=== PATIENT | male | born 1970 | race Caucasian/White ===

== ENCOUNTER → 2016-03-13 | Outpatient (REF) | payer BC ==
[2016-03-13 14:26] LABS: PERCENT SATURATION 41.8 % (19.7-37.4)
== END ==
LOC: M LAB REF 13:02
PROVIDERS: ATTEND Nurse Practitioner Adult Health
DX: E83.110 Hereditary hemochromatosis (principal)

== ENCOUNTER 2016-05-08 15:26 | Emergency (ER) | payer BC, OTHER ==
[~2016-05-08] VITALS: Ht 177.8 cm; Wt 100.2 kg
[2016-05-08] MEDS ORDERED: ONDANSETRON 4MG/2ML VIAL (J2405) As Ordered ONE (15:32)
[2016-05-08] MEDS ORDERED: NS 1,000 ML IV ONE (15:45)
[2016-05-08] MEDS ORDERED: ISOVUE-370 76% 100ML VIAL (Q9967) As Ordered ONE (15:59)
[2016-05-08] MEDS ORDERED: PROPOFOL 1,000 MG/100 ML VIAL As Ordered ONE (15:59)
[2016-05-08] MEDS ORDERED: ETOMIDATE INJ 20MG/10ML VIAL ONE (16:13)
[2016-05-08] MEDS ORDERED: ROCURONIUM BROMIDE 50 MG/5 ML VIAL ONE (16:13)
[2016-05-08] MEDS ORDERED: PROPOFOL 200 MG/20 ML VIAL ONE (16:13)
[2016-05-08] MEDS ORDERED: PROPOFOL 1,000 MG in APPROPRIATE DILUENT 1 EA IV SCH (16:15)
[2016-05-08] MEDS ORDERED: ROCURONIUM BROMIDE 50 MG/5 ML VIAL IV STA (16:53)
[2016-05-08] MEDS ORDERED: ETOMIDATE INJ 20MG/10ML VIAL IV STA (16:53)
[2016-05-08] MEDS ORDERED: PROPOFOL 200 MG/20 ML VIAL IV STA (16:53)
[2016-05-08] MEDS ORDERED: fentaNYL 100 MCG/2 ML INJECTION (J3010) IV ONE (17:00)
[2016-05-08] MEDS ORDERED: ONDANSETRON 4MG/2ML VIAL (J2405) IV ONE (17:00)
[2016-05-08 17:12] VITALS: BP 132/74
[2016-05-08 17:26] LABS: MEAN CORPUSCULAR HEMOGLOBIN 29.3 pg (27.0-33.0); MEAN CORPUSCULAR HGB CONC 33.2 g/dl (32.0-36.5); MEAN CORPUSCULAR VOLUME 88.2 fl (80.0-96.0); PLATELET COUNT, AUTOMATED 253 k/mm3 (150-450); RED CELL DISTRIBUTION WIDTH 13.2 % (11.5-14.5); WHITE BLOOD COUNT 28.2 K/mm3 (4.0-10.0)
[2016-05-08 17:35] LABS: METHADONE URINE NEGATIVE (NEGATIVE)
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
[2016-05-08 17:39] LABS: INR 0.99
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
[2016-05-08 17:41] LABS: ALKALINE PHOSPHATASE 62 U/L (45-117); ALT/SGPT 100 U/L (12-78); AMYLASE 70 U/L (25-115); AST/SGOT 98 U/L (15-37); BILIRUBIN,DIRECT 0.2 MG/DL (0.0-0.2); BILIRUBIN,TOTAL 0.6 MG/DL (0.2-1.0); BLOOD UREA NITROGEN 15 MG/DL (7-18); CALCIUM LEVEL 7.7 MG/DL (8.5-10.1); CARBON DIOXIDE LEVEL 27 MEQ/L (21-32); CHLORIDE LEVEL 102 MEQ/L (98-107); CREATININE FOR GFR 0.86 MG/DL (0.70-1.30); GLUCOSE, FASTING 187 MG/DL (70-105); POTASSIUM SERUM 3.3 MEQ/L (3.5-5.1); SODIUM LEVEL 139 MEQ/L (136-145)
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
[2016-05-08 17:52] LABS: ANION GAP 10 MEQ/L (8-16)
[2016-05-08 17:53] LABS: ALBUMIN 3.9 GM/DL (3.2-5.2); ALBUMIN/GLOBULIN RATIO 1.39 (1.00-1.93); TOTAL PROTEIN 6.7 GM/DL (6.4-8.2)
[2016-05-08 18:03] LABS: BANDS 18 % (< 11)
[2016-05-08 18:04] LABS: TOXIC GRANULATION 1+
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
--- NOTE | 2016-05-08 20:31 | ED PDOC ---
Provider Note Patient was prepared for intubation shortly after arrival. Pre-oxygenated. 4 Attempts were made by the ED staff via direct glidescope larygnoscopy with good C-Spine immobilization. Unfortunately, the tube was not able to be advanced pass the cords. Anesthesia was called, and the patient was bagged with good results between attempts. a 7.0 tube was secured by the eap counselor. The patient tolerated the procedure well. Tube placement was confirmed by capnography, color change, xray and auscultation. EDEN CUNNINGHAM MD May 08, 2016 20:31
== END 2016-05-08 17:00 | disposition short-term general hospital (02) ==
LOC: EDBD 15:26 → M ED 16:12
DX: S06.6X9A Traumatic subarachnoid hemorrhage with loss of consciousness of unspecified duration, initial encounter (principal); S22.31XA Fracture of one rib, right side, initial encounter for closed fracture; S42.018A Nondisplaced fracture of sternal end of left clavicle, initial encounter for closed fracture; S27.329A Contusion of lung, unspecified, initial encounter; V49.40XA Driver injured in collision with unspecified motor vehicles in traffic accident, initial encounter; Y92.410 Unspecified street and highway as the place of occurrence of the external cause; Y93.89 Activity, other specified; Y99.9 Unspecified external cause status; I10 Essential (primary) hypertension; Z88.0 Allergy status to penicillin
CPT/HCPCS: 31500; 51702; 70450; 71010; 71260; 72125; 74177; 80048; 80076; 80306; 81001; 82150; 82550; 82553; 83605; 83690; 85025; 85610; 85730; 86850; 86900; 86901; 93041; 94760; 96361; 96374; 96375; 99285; G0480; J2405; J3010; Q9967

== ENCOUNTER → 2016-08-13 | Outpatient (REF) | PROVIDERS: ATTEND Internal Medicine | DX: S42.002A Fracture of unspecified part of left clavicle, initial encounter for closed fracture (principal) ==

== ENCOUNTER → 2016-08-14 | Outpatient (REF) ==
[2016-08-14 10:32] LABS: MEAN CORPUSCULAR HEMOGLOBIN 30.6 pg (27.0-33.0); MEAN CORPUSCULAR HGB CONC 35.8 g/dl (32.0-36.5); MEAN CORPUSCULAR VOLUME 85.4 fl (80.0-96.0); RED CELL DISTRIBUTION WIDTH 14.8 % (11.5-14.5); WHITE BLOOD COUNT 7.4 K/mm3 (4.0-10.0)
[2016-08-14 10:37] LABS: ANION GAP 7 MEQ/L (8-16); BLOOD UREA NITROGEN 19 MG/DL (7-18); CALCIUM LEVEL 9.4 MG/DL (8.5-10.1); CARBON DIOXIDE LEVEL 29 MEQ/L (21-32); CHLORIDE LEVEL 100 MEQ/L (98-107); CREATININE FOR GFR 0.52 MG/DL (0.70-1.30); GLOMERULAR FILTRATION RATE > 60.0 (>60); GLUCOSE, FASTING 83 MG/DL (70-105); POTASSIUM SERUM 4.4 MEQ/L (3.5-5.1); SODIUM LEVEL 136 MEQ/L (136-145)
== END ==
PROVIDERS: ATTEND Internal Medicine
DX: Z51.81 Encounter for therapeutic drug level monitoring (principal); Z79.899 Other long term (current) drug therapy

== ENCOUNTER → 2016-08-20 | Outpatient (REF) ==
[2016-08-20 10:31] LABS: MEAN CORPUSCULAR HEMOGLOBIN 30.1 pg (27.0-33.0); MEAN CORPUSCULAR HGB CONC 35.6 g/dl (32.0-36.5); MEAN CORPUSCULAR VOLUME 84.6 fl (80.0-96.0); RED CELL DISTRIBUTION WIDTH 14.7 % (11.5-14.5); WHITE BLOOD COUNT 5.6 K/mm3 (4.0-10.0)
[2016-08-20 11:00] LABS: ANION GAP 9 MEQ/L (8-16); BLOOD UREA NITROGEN 19 MG/DL (7-18); CALCIUM LEVEL 9.8 MG/DL (8.5-10.1); CARBON DIOXIDE LEVEL 28 MEQ/L (21-32); CHLORIDE LEVEL 102 MEQ/L (98-107); CREATININE FOR GFR 0.51 MG/DL (0.70-1.30); GLOMERULAR FILTRATION RATE > 60.0 (>60); GLUCOSE, FASTING 79 MG/DL (70-105); POTASSIUM SERUM 4.4 MEQ/L (3.5-5.1); SODIUM LEVEL 139 MEQ/L (136-145)
== END ==
PROVIDERS: ATTEND Internal Medicine
DX: Z79.899 Other long term (current) drug therapy (principal)

== ENCOUNTER → 2016-09-03 | Outpatient (REF) ==
[~2016-09-03] MED LIST: ACET32TAB PEG; ALBU83IN INH; AMLO10TA2 PEG; ARTI99.0 OU; ASPI81CH PEG; BACL10TA2 PEG; CIPR5SUS PEG; CULT10CA2 PEG; DULC10SU2 PR; ENEMENE16 PR; FAMO40TA3 PEG; FLON1SPR; HYDR10TAB PEG; LEVA1TAB2 PO; LEVE15SO PEG; LEVE500UDC PEG; MAPA325T2 PEG; METO1TAB87 PEG; METO37.5 PEG; MILKSUS PEG; MONT10TA2 PEG; OSMOLIQ7 PEG; PROC25SU24 PR; SENN15UDC PEG; XARE20TA PEG; [UNRECOGNIZED DRUG - CODE] PEG
[2016-09-03 11:49] LABS: MEAN CORPUSCULAR HEMOGLOBIN 30.6 pg (27.0-33.0); MEAN CORPUSCULAR HGB CONC 35.7 g/dl (32.0-36.5); MEAN CORPUSCULAR VOLUME 85.9 fl (80.0-96.0); RED CELL DISTRIBUTION WIDTH 14.4 % (11.5-14.5); WHITE BLOOD COUNT 6.8 K/mm3 (4.0-10.0)
[2016-09-03 13:11] LABS: ANION GAP 9 MEQ/L (8-16); BLOOD UREA NITROGEN 19 MG/DL (7-18); CALCIUM LEVEL 9.5 MG/DL (8.5-10.1); CARBON DIOXIDE LEVEL 27 MEQ/L (21-32); CHLORIDE LEVEL 101 MEQ/L (98-107); CREATININE FOR GFR 0.54 MG/DL (0.70-1.30); GLOMERULAR FILTRATION RATE > 60.0 (>60); GLUCOSE, FASTING 74 MG/DL (70-105); POTASSIUM SERUM 4.3 MEQ/L (3.5-5.1); SODIUM LEVEL 137 MEQ/L (136-145)
== END ==
PROVIDERS: ATTEND Internal Medicine
DX: Z93.1 Gastrostomy status (principal)

== ENCOUNTER 2016-09-08 22:08 | Emergency (ER) | payer BC, OTHER ==
[~2016-09-08] VITALS: Ht 185.4 cm; Wt 78.2 kg
[2016-09-08 22:31] VITALS: BP 131/81
[2016-12-23] MEDS ORDERED: MAPA325T2 PEG (17:35)
[2016-12-23] MEDS ORDERED: LEVE15SO PEG (17:35)
[2016-12-23] MEDS ORDERED: XARE20TA PEG (17:35)
[2016-12-23] MEDS ORDERED: ACET32TAB PEG (17:35)
[2016-12-23] MEDS ORDERED: MILKSUS PEG (17:35)
[2016-12-23] MEDS ORDERED: BACL10TA2 PEG (17:35)
[2016-12-23] MEDS ORDERED: PROC25SU24 PR (17:35)
[2016-12-23] MEDS ORDERED: ENEMENE16 PR (17:44)
[2016-12-23] MEDS ORDERED: METO37.5 PEG (17:44)
[2016-12-23] MEDS ORDERED: FAMO40TA3 PEG (17:44)
[2016-12-23] MEDS ORDERED: [UNRECOGNIZED DRUG - CODE] PEG (17:44)
[2016-12-23] MEDS ORDERED: ALBU83IN INH (17:44)
[2016-12-23] MEDS ORDERED: ARTI99.0 OU (17:44)
[2016-12-23] MEDS ORDERED: ASPI81CH PEG (17:44)
[2016-12-23] MEDS ORDERED: MONT10TA2 PEG (17:44)
[2016-12-23] MEDS ORDERED: HYDR10TAB PEG (17:44)
[2016-12-23] MEDS ORDERED: OSMOLIQ7 PEG (17:44)
[2016-12-23] MEDS ORDERED: AMLO10TA2 PEG (17:44)
[2016-12-23] MEDS ORDERED: SENN15UDC PEG (17:44)
[2016-12-23] MEDS ORDERED: FLON1SPR (17:44)
[2016-12-23] MEDS ORDERED: DULC10SU2 PR (17:44)
[2016-12-23] MEDS ORDERED: CULT10CA2 PEG (17:44)
[2016-12-27] MEDS ORDERED: LEVA1TAB2 PO (08:50)
[2016-12-27] MEDS ORDERED: METO1TAB87 PEG (08:50)
== END 2016-09-09 00:45 | disposition home or self-care (01) ==
LOC: M ED 22:08
DX: Z43.1 Encounter for attention to gastrostomy (principal); G82.50 Quadriplegia, unspecified; Z88.8 Allergy status to other drugs, medicaments and biological substances; Z88.0 Allergy status to penicillin

== ENCOUNTER → 2016-09-26 | Outpatient (REF) ==
[2016-09-26 11:45] LABS: ANION GAP 13 MEQ/L (8-16); BLOOD UREA NITROGEN 18 MG/DL (7-18); CALCIUM LEVEL 9.2 MG/DL (8.5-10.1); CARBON DIOXIDE LEVEL 26 MEQ/L (21-32); CHLORIDE LEVEL 99 MEQ/L (98-107); CREATININE FOR GFR 0.53 MG/DL (0.70-1.30); GLOMERULAR FILTRATION RATE > 60.0 (>60); GLUCOSE, FASTING 84 MG/DL (70-105); POTASSIUM SERUM 3.9 MEQ/L (3.5-5.1); SODIUM LEVEL 138 MEQ/L (136-145)
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
== END ==
PROVIDERS: ATTEND Internal Medicine
DX: Z00.00 Encounter for general adult medical examination without abnormal findings (principal)

== ENCOUNTER → 2016-10-01 | Outpatient (REF) ==
[2016-10-01 11:03] LABS: MEAN CORPUSCULAR HEMOGLOBIN 31.3 pg (27.0-33.0); MEAN CORPUSCULAR HGB CONC 35.4 g/dl (32.0-36.5); MEAN CORPUSCULAR VOLUME 88.4 fl (80.0-96.0); RED CELL DISTRIBUTION WIDTH 13.8 % (11.5-14.5); WHITE BLOOD COUNT 9.4 K/mm3 (4.0-10.0)
== END ==
PROVIDERS: ATTEND Internal Medicine
DX: Z93.1 Gastrostomy status (principal)

== ENCOUNTER → 2016-10-09 | Outpatient (CLI) | payer BC ==
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
== END ==
LOC: M PAIN 12:30
PROVIDERS: ATTEND Anesthesiology
DX: M79.602 Pain in left arm (principal); M79.601 Pain in right arm; M62.422 Contracture of muscle, left upper arm; M62.421 Contracture of muscle, right upper arm; J45.909 Unspecified asthma, uncomplicated; I10 Essential (primary) hypertension; K21.9 Gastro-esophageal reflux disease without esophagitis; E83.119 Hemochromatosis, unspecified; Z87.891 Personal history of nicotine dependence; Z79.82 Long term (current) use of aspirin; Z79.899 Other long term (current) drug therapy; Z88.0 Allergy status to penicillin; Z88.8 Allergy status to other drugs, medicaments and biological substances; Z87.820 Personal history of traumatic brain injury; Z98.1 Arthrodesis status; Z98.2 Presence of cerebrospinal fluid drainage device

== ENCOUNTER → 2016-10-18 | Outpatient (CLI) | payer BC ==
--- NOTE | 2016-10-18 13:48 | REP ---
CT HEAD WITHOUT CONTRAST: HISTORY: Traumatic brain injury. COMPARISON: 05/08/2016 Areas of decreased attenuation are present in the frontal, parietal, and left temporal lobes. There is dilatation of the overlying cortical sulci and anterior horns of the lateral ventricles. These findings are consistent with encephalomalacia. There is no intraparenchymal hemorrhage, mass, or midline shift. A shunt is present in the anterior horn of the right lateral ventricle. There is mild dilatation of the ventricular system. There is no dilatation of the overlying cortical sulci. This is consistent with at least minimal hydrocephalus. There is no extracerebral collection. The visualized sinuses are clear. IMPRESSION: 1. Bilateral frontal, parietal, and left temporal encephalomalacia. 2. There is dilatation of the ventricular system without dilatation of the overlying cortical sulci. This is consistent with at least minimal hydrocephalus. A shunt is present in the right lateral ventricle. Signed by Jonathan Yap MD 10/18/2016 01:54 P
== END ==
LOC: M RAD 12:23
PROVIDERS: ATTEND Psychiatry & Neurology Neurology
DX: S06.2X9D Diffuse traumatic brain injury with loss of consciousness of unspecified duration, subsequent encounter (principal); S06.6X Traumatic subarachnoid hemorrhage; S06.5X Traumatic subdural hemorrhage; X58.XXXD Exposure to other specified factors, subsequent encounter; Y92.9 Unspecified place or not applicable; Z98.2 Presence of cerebrospinal fluid drainage device

== ENCOUNTER 2016-10-20 21:52 | Emergency (ER) | payer BC ==
[~2016-10-20] VITALS: Ht 180.3 cm; Wt 82.0 kg
[2016-10-20] MEDS ORDERED: NS 500 ML IV ONE (22:30)
[2016-10-20 23:21] LABS: BASO # 0.1 K/mm3 (0.0-0.2); BASO % 0.2 % (0.0-1.0); EOS # 0.1 K/mm3 (0.0-0.50); EOS % 0.6 % (0.0-3.0); LARGE UNSTAINED CELL % 0.2 % (0.0-4.0); LYMPH % 4.2 % (24.0-44.0); MEAN CORPUSCULAR HEMOGLOBIN 31.1 pg (27.0-33.0); MEAN CORPUSCULAR HGB CONC 34.9 g/dl (32.0-36.5); MEAN CORPUSCULAR VOLUME 89.3 fl (80.0-96.0); MONO # 0.8 K/mm3 (0.0-0.8); MONO % 3.6 % (0.0-5.0); NEUTROPHILS # 21.2 K/mm3 (1.8-7.7); NEUTROPHILS % 91.2 % (36.0-66.0); PLATELET COUNT, AUTOMATED 326 k/mm3 (150-450); RED CELL DISTRIBUTION WIDTH 13.4 % (11.5-14.5); WHITE BLOOD COUNT 23.3 K/mm3 (4.0-10.0)
[2016-10-21 03:20] LABS: ALBUMIN/GLOBULIN RATIO 1.18 (1.00-1.93); ALKALINE PHOSPHATASE 71 U/L (45-117); ALT/SGPT 31 U/L (12-78); AMYLASE 39 U/L (25-115); ANION GAP 10 MEQ/L (8-16); AST/SGOT 11 U/L (15-37); BILIRUBIN,DIRECT 0.3 MG/DL (0.0-0.2); BILIRUBIN,TOTAL 1.2 MG/DL (0.2-1.0); BLOOD UREA NITROGEN 20 MG/DL (7-18); CALCIUM LEVEL 9.8 MG/DL (8.5-10.1); CARBON DIOXIDE LEVEL 26 MEQ/L (21-32); CHLORIDE LEVEL 105 MEQ/L (98-107); GLOMERULAR FILTRATION RATE > 60.0 (>60); GLUCOSE, FASTING 129 MG/DL (70-105); POTASSIUM SERUM 3.8 MEQ/L (3.5-5.1); SODIUM LEVEL 141 MEQ/L (136-145); TOTAL PROTEIN 7.4 GM/DL (6.4-8.2)
[2016-10-21] MEDS ORDERED: ISOVUE-370 76% 100ML VIAL (Q9967) As Ordered ONE (04:04)
--- NOTE | 2016-10-21 04:50 | REPUSA ---
CLINICAL HISTORY: Abdominal pain. TECHNIQUE: Multiple axial, sagittal and coronal CT images were obtained through the abdomen and pelvi s after administration of intravenous contrast material. COMMENTS: Moderate large bowel fecal stasis. The liver is mildly enlarged with decreased attenuation without mass or defect. There is no intra or extrahepatic biliary ductal dilatation. The spleen is normal. The gallbladder contains layering sludg e. The pancreas is of normal contour and attenuation characteristics. There is no evidence of adrenal mass. Both kidneys demonstrate prompt and equal nephrograms. The kidneys are normal in size, shape and conf iguration. There is no evidence of renal or ureteral mass. No renal or ureteral calculi are identifie d. There is no hydroureter or hydronephrosis. No evidence for appendicitis. There is no bowel wall thickening. No evidence for small or large cayetano l obstruction. There is no evidence of abdominal ascites or lymphadenopathy. There is no evidence of intrinsic or extrinsic bladder mass. Diffusely thickened bladder. There is no pelvic ascites or lymphadenopathy. Images of the lung bases show no evidence of pleural or parenchymal mass. There are no pleural effusi ons. Bilateral basilar atelectatic pulmonary changes. The bony structures are free of lytic or blastic lesions. Multilevel degenerative changes are seen in volving the thoracolumbar spine. Scattered calcifications are seen involving the aorta and major bran ches compatible with atherosclerosis. Ventriculoperitoneal shunt tube is noted. IMPRESSION: Mild hepatomegaly with fatty liver infiltration. Layering sludge in the gallbladder. Mild prostatomegaly. Thickened bladder. Thank you for your kind referral of this patient.
[2016-10-21 05:57] VITALS: BP 126/70
[2016-12-23] MEDS ORDERED: XARE20TA PEG (17:35)
[2016-12-23] MEDS ORDERED: MILKSUS PEG (17:35)
[2016-12-23] MEDS ORDERED: ACET32TAB PEG (17:35)
[2016-12-23] MEDS ORDERED: MAPA325T2 PEG (17:35)
[2016-12-23] MEDS ORDERED: BACL10TA2 PEG (17:35)
[2016-12-23] MEDS ORDERED: LEVE15SO PEG (17:35)
[2016-12-23] MEDS ORDERED: PROC25SU24 PR (17:35)
[2016-12-23] MEDS ORDERED: ALBU83IN INH (17:44)
[2016-12-23] MEDS ORDERED: [UNRECOGNIZED DRUG - CODE] PEG (17:44)
[2016-12-23] MEDS ORDERED: ENEMENE16 PR (17:44)
[2016-12-23] MEDS ORDERED: ASPI81CH PEG (17:44)
[2016-12-23] MEDS ORDERED: MONT10TA2 PEG (17:44)
[2016-12-23] MEDS ORDERED: ARTI99.0 OU (17:44)
[2016-12-23] MEDS ORDERED: FAMO40TA3 PEG (17:44)
[2016-12-23] MEDS ORDERED: CULT10CA2 PEG (17:44)
[2016-12-23] MEDS ORDERED: METO37.5 PEG (17:44)
[2016-12-23] MEDS ORDERED: AMLO10TA2 PEG (17:44)
[2016-12-23] MEDS ORDERED: HYDR10TAB PEG (17:44)
[2016-12-23] MEDS ORDERED: SENN15UDC PEG (17:44)
[2016-12-23] MEDS ORDERED: OSMOLIQ7 PEG (17:44)
[2016-12-23] MEDS ORDERED: DULC10SU2 PR (17:44)
[2016-12-23] MEDS ORDERED: FLON1SPR (17:44)
[2016-12-27] MEDS ORDERED: LEVA1TAB2 PO (08:50)
[2016-12-27] MEDS ORDERED: METO1TAB87 PEG (08:50)
== END 2016-10-21 06:25 | disposition home or self-care (01) ==
LOC: M ED 21:52 → EDBD 21:52 → M ED 10-21 06:25
DX: R11.10 Vomiting, unspecified (principal); K59.00 Constipation, unspecified; K83.9 Disease of biliary tract, unspecified; K76.0 Fatty (change of) liver, not elsewhere classified; D72.829 Elevated white blood cell count, unspecified; G93.9 Disorder of brain, unspecified; G91.9 Hydrocephalus, unspecified; G82.50 Quadriplegia, unspecified; N40.0 Benign prostatic hyperplasia without lower urinary tract symptoms; N32.9 Bladder disorder, unspecified; Z88.0 Allergy status to penicillin; Z88.8 Allergy status to other drugs, medicaments and biological substances
CPT/HCPCS: 74177; 80048; 80076; 81001; 82150; 83690; 85025; 87086; 99284; Q9967

== ENCOUNTER → 2016-10-21 | Outpatient (REF) ==
[2016-10-21 11:27] LABS: MEAN CORPUSCULAR HEMOGLOBIN 32.2 pg (27.0-33.0); MEAN CORPUSCULAR HGB CONC 35.3 g/dl (32.0-36.5); MEAN CORPUSCULAR VOLUME 91.2 fl (80.0-96.0); RED CELL DISTRIBUTION WIDTH 13.5 % (11.5-14.5); WHITE BLOOD COUNT 16.3 K/mm3 (4.0-10.0)
[2016-10-21 11:56] LABS: ANION GAP 10 MEQ/L (8-16); BLOOD UREA NITROGEN 21 MG/DL (7-18); CARBON DIOXIDE LEVEL 26 MEQ/L (21-32); CHLORIDE LEVEL 107 MEQ/L (98-107); CREATININE FOR GFR 0.64 MG/DL (0.70-1.30); GLOMERULAR FILTRATION RATE > 60.0 (>60); GLUCOSE, FASTING 99 MG/DL (70-105); POTASSIUM SERUM 4.3 MEQ/L (3.5-5.1); SODIUM LEVEL 143 MEQ/L (136-145)
== END ==
PROVIDERS: ATTEND Internal Medicine
DX: D72.829 Elevated white blood cell count, unspecified (principal)

== ENCOUNTER → 2016-10-22 | Outpatient (REF) | payer BC ==
--- NOTE | 2016-10-22 10:26 | REP ---
AP chest x-ray: Single view. History: Question aspiration. Findings: A ventriculoperitoneal shunt tube is seen over the right chest. The patient is status post ventral discectomy and fusion plating in the lower cervical spine. There is linear plate-like atelectasis versus fibrosis in the left base. This appears to be new when compared with the May 08, 2016 chest x-ray. Heart is not enlarged. Lung pace are otherwise clear. Pleural angles are sharp. Pulmonary vasculature is not increased. Impression: Linear density left base consistent with plate-like atelectasis or scarring. Otherwise no acute disease. Signed by Dexter Barbosa MD 10/22/2016 12:14 P
== END ==
PROVIDERS: ATTEND Internal Medicine

== ENCOUNTER → 2016-10-23 | Outpatient (REF) ==
[2016-10-23 10:42] LABS: MEAN CORPUSCULAR HEMOGLOBIN 32.2 pg (27.0-33.0); MEAN CORPUSCULAR HGB CONC 35.6 g/dl (32.0-36.5); MEAN CORPUSCULAR VOLUME 90.2 fl (80.0-96.0); RED CELL DISTRIBUTION WIDTH 13.3 % (11.5-14.5); WHITE BLOOD COUNT 9.4 K/mm3 (4.0-10.0)
[2016-10-23 10:52] LABS: ANION GAP 8 MEQ/L (8-16); BLOOD UREA NITROGEN 23 MG/DL (7-18); CALCIUM LEVEL 9.1 MG/DL (8.5-10.1); CARBON DIOXIDE LEVEL 29 MEQ/L (21-32); CHLORIDE LEVEL 104 MEQ/L (98-107); CREATININE FOR GFR 0.61 MG/DL (0.70-1.30); GLOMERULAR FILTRATION RATE > 60.0 (>60); GLUCOSE, FASTING 81 MG/DL (70-105); POTASSIUM SERUM 4.1 MEQ/L (3.5-5.1); SODIUM LEVEL 141 MEQ/L (136-145)
== END ==
PROVIDERS: ATTEND Internal Medicine
DX: D72.829 Elevated white blood cell count, unspecified (principal)

== ENCOUNTER 2016-12-01 20:20 | Emergency (ER) | payer BC, MEDICAID, OTHER ==
[~2016-12-01] VITALS: Ht 185.4 cm; Wt 80.0 kg
[2016-12-01 21:12] LABS: BASO # 0.1 10^3/uL (0.0-0.2); BASO % 0.4 % (0.0-1.0); EOS # 0.1 10^3/uL (0.0-0.50); EOS % 0.5 % (0.0-3.0); IMMATURE GRANULOCYTE % 0.8 % (0-0); LYMPH # 1.5 10^3/uL (1.5-4.5); LYMPH % 7.6 % (24.0-44.0); MEAN CORPUSCULAR HEMOGLOBIN 31.3 pg (27.0-33.0); MEAN CORPUSCULAR HGB CONC 34.8 g/dl (32.0-36.5); MEAN CORPUSCULAR VOLUME 89.9 fl (80.0-96.0); MONO # 1.1 10^3/uL (0.0-0.8); MONO % 5.7 % (0.0-5.0); NEUTROPHILS # 16.6 10^3/uL (1.8-7.7); PLATELET COUNT, AUTOMATED 381 10^3/uL (150-450); RED CELL DISTRIBUTION WIDTH 12.2 % (11.5-14.5); WHITE BLOOD COUNT 19.6 10^3/uL (4.0-10.0)
--- NOTE | 2016-12-01 21:30 | REPUSA ---
CT of the head Clinical history: syncope. Comparison: 10/18/2016. Protocol: Multiple axial CT images obtained with 5 mm slice thickness were obtained through the head without administration of contrast. Findings: The ventricles and sulci are symmetric but similarly increased in size bilaterally. In part icular shunt catheter is demonstrated, entering in the right frontal lobe and terminating in the fron tania horn of the right lateral ventricle. There are periventricular areas of low attenuation throughou t the deep white matter, most prominent in the frontal lobes. There is no evidence of acute hemorrhag e or infarct. There is no midline shift, mass effect, or extra-axial fluid collection. The osseous st ructures are unremarkable. The visualized paranasal sinuses and mastoid air cells are clear. Impression: 1. No acute hemorrhage or infarct. 2. Findings are consistent with severe age-related atrophy and chronic small vessel ischemic disease. 3. Hydrocephalus, grossly stable. Shunt catheter is in place.
[2016-12-01 21:32] LABS: ANION GAP 9 MEQ/L (8-16); BLOOD UREA NITROGEN 16 MG/DL (7-18); CALCIUM LEVEL 9.9 MG/DL (8.5-10.1); CARBON DIOXIDE LEVEL 27 MEQ/L (21-32); CHLORIDE LEVEL 102 MEQ/L (98-107); CREATININE FOR GFR 0.86 MG/DL (0.70-1.30); FREE T4 1.31 NG/DL (0.76-1.46); GLOMERULAR FILTRATION RATE > 60.0 (>60); GLUCOSE, FASTING 101 MG/DL (70-105); MAGNESIUM LEVEL 2.3 MG/DL (1.8-2.4); POTASSIUM SERUM 3.9 MEQ/L (3.5-5.1); SODIUM LEVEL 138 MEQ/L (136-145)
[2016-12-01 21:45] LABS: INR 0.97
[2016-12-01] MEDS ORDERED: levETIRAcetam INJection 750 MG in D5W 100 ML IV ONE (22:15)
[2016-12-01] MEDS ORDERED: SODIUM CHLORIDE 0.9% 1000 ML IV ONE (22:15)
[2016-12-01] MEDS ORDERED: NS 1,000 ML IV SCH (22:15)
[2016-12-01 22:17] LABS: ABG BASE EXCESS 0.2 (-2.0-2.0); ABG HCO3 21.9 MEQ/L (22.0-26.0); ABG PARTIAL PRESSURE CO2 28.2 mmHg (35.0-45.0); ABG PARTIAL PRESSURE O2 192.4 mmHg (75.0-100.0); ABG STANDARD HCO3 24.7 MEQ/L (22.0-26.0); ABG TOTAL CO2 22.8 MEQ/L (22.0-29.0); ABG pH (ARTERIAL) 7.509 UNITS (7.350-7.450)
[2016-12-01] MEDS ORDERED: CIPROFLOXACIN 400 MG in APPROPRIATE DILUENT 1 EA IV ONE (23:15)
[2016-12-01 23:53] LABS: MEAN CORPUSCULAR HGB CONC 34.2 g/dl (32.0-36.5); MEAN CORPUSCULAR VOLUME 90.5 fl (80.0-96.0); RED CELL DISTRIBUTION WIDTH 12.1 % (11.5-14.5); WHITE BLOOD COUNT 17.5 10^3/uL (4.0-10.0)
[2016-12-02] MEDS ORDERED: LEVE500UDC PEG (00:33)
[2016-12-02] MEDS ORDERED: CIPR5SUS PEG (00:33)
[2016-12-02 01:20] VITALS: BP 124/77
--- NOTE | 2016-12-02 08:26 | REP ---
PORTABLE CHEST X-RAY: Single view. HISTORY: Syncope. COMPARISON STUDY: May 08, 2016. FINDINGS: A right ventriculoperitoneal shunt catheter is seen coursing across the right chest today. There is a old fracture of the distal clavicle on the left again noted. The patient is status post anterior cervical discectomy and fusion plating. The lungs are symmetrically aerated and clear. The pleural angles are sharp. Heart size is normal. Pulmonary vasculature is not increased. IMPRESSION: No acute disease. Signed by Dexter Barbosa MD 12/02/2016 01:14 P
--- NOTE | 2016-12-02 09:12 | ECGEPIP ---
Stationary ECG Study [facility] - ED Test Date: 2016-12-01 Pat Name: LYNDSEY PRICE Department: Room: - Gender: M Certified Meeting Professional: rn : 1970 Requested By: MIGUELANGEL BREAUX Order Number: [id number] Reading MD: Silvio Mccormack Measurements Intervals [place] Rate: 89 P: 40 PA: 163 QRS: -3 QRSD: 113 T: 1 QT: 372 QTc: 453 Interpretive Statements SINUS RHYTHM INFERIOR MYOCARDIAL INFARCTION, PROBABLY OLD NO PRIORS Electronically Signed On 12-02-2016 9:12:05 EDT by Silvio Mccormack
[2016-12-23] MEDS ORDERED: BACL10TA2 PEG (17:35)
[2016-12-23] MEDS ORDERED: LEVE15SO PEG (17:35)
[2016-12-23] MEDS ORDERED: MILKSUS PEG (17:35)
[2016-12-23] MEDS ORDERED: ACET32TAB PEG (17:35)
[2016-12-23] MEDS ORDERED: PROC25SU24 PR (17:35)
[2016-12-23] MEDS ORDERED: MAPA325T2 PEG (17:35)
[2016-12-23] MEDS ORDERED: XARE20TA PEG (17:35)
[2016-12-23] MEDS ORDERED: ENEMENE16 PR (17:44)
[2016-12-23] MEDS ORDERED: ARTI99.0 OU (17:44)
[2016-12-23] MEDS ORDERED: MONT10TA2 PEG (17:44)
[2016-12-23] MEDS ORDERED: ALBU83IN INH (17:44)
[2016-12-23] MEDS ORDERED: DULC10SU2 PR (17:44)
[2016-12-23] MEDS ORDERED: CULT10CA2 PEG (17:44)
[2016-12-23] MEDS ORDERED: OSMOLIQ7 PEG (17:44)
[2016-12-23] MEDS ORDERED: FLON1SPR (17:44)
[2016-12-23] MEDS ORDERED: FAMO40TA3 PEG (17:44)
[2016-12-23] MEDS ORDERED: METO37.5 PEG (17:44)
[2016-12-23] MEDS ORDERED: AMLO10TA2 PEG (17:44)
[2016-12-23] MEDS ORDERED: ASPI81CH PEG (17:44)
[2016-12-23] MEDS ORDERED: SENN15UDC PEG (17:44)
[2016-12-23] MEDS ORDERED: [UNRECOGNIZED DRUG - CODE] PEG (17:44)
[2016-12-23] MEDS ORDERED: HYDR10TAB PEG (17:44)
[2016-12-27] MEDS ORDERED: LEVA1TAB2 PO (08:50)
[2016-12-27] MEDS ORDERED: METO1TAB87 PEG (08:50)
== END 2016-12-02 01:33 | disposition home or self-care (01) ==
LOC: M ED 20:20 → EDBD 20:20 → M ED 12-02 01:33
DX: N39.0 Urinary tract infection, site not specified (principal); R56.9 Unspecified convulsions; G91.9 Hydrocephalus, unspecified; Z98.2 Presence of cerebrospinal fluid drainage device; Z87.820 Personal history of traumatic brain injury; K21.9 Gastro-esophageal reflux disease without esophagitis; I10 Essential (primary) hypertension; Z88.0 Allergy status to penicillin; Z88.8 Allergy status to other drugs, medicaments and biological substances
CPT/HCPCS: 51701; 70450; 71010; 80048; 81001; 82550; 82553; 82803; 83605; 83735; 84439; 84443; 85025; 85027; 85610; 85730; 86140; 87040; 87086; 93005; 93041; 96365; 96366; 96368; 99285; J0744; J1953

== ENCOUNTER → 2016-12-17 | Outpatient (REF) | payer OTHER | PROVIDERS: ATTEND Internal Medicine | DX: G40.909 Epilepsy, unspecified, not intractable, without status epilepticus (principal) ==

== ENCOUNTER → 2017-01-03 | Outpatient (REF) | payer OTHER ==
[2017-01-03 14:53] LABS: ANION GAP 11 MEQ/L (8-16); BLOOD UREA NITROGEN 16 MG/DL (7-18); CALCIUM LEVEL 9.1 MG/DL (8.5-10.1); CARBON DIOXIDE LEVEL 26 MEQ/L (21-32); CHLORIDE LEVEL 104 MEQ/L (98-107); GLOMERULAR FILTRATION RATE > 60.0 (>60); GLUCOSE, FASTING 78 MG/DL (70-105); POTASSIUM SERUM 4.1 MEQ/L (3.5-5.1); SODIUM LEVEL 141 MEQ/L (136-145)
== END ==
PROVIDERS: ATTEND Internal Medicine
DX: R56.9 Unspecified convulsions (principal)

== ENCOUNTER → 2017-01-06 | Outpatient (REF) | payer OTHER ==
[2017-01-06 12:10] LABS: MEAN CORPUSCULAR HEMOGLOBIN 30.9 pg (27.0-33.0); MEAN CORPUSCULAR HGB CONC 34.3 g/dl (32.0-36.5); MEAN CORPUSCULAR VOLUME 90.2 fl (80.0-96.0); PLATELET COUNT, AUTOMATED 276 10^3/uL (150-450); RED CELL DISTRIBUTION WIDTH 12.5 % (11.5-14.5); WHITE BLOOD COUNT 9.5 10^3/uL (4.0-10.0)
== END ==
PROVIDERS: ATTEND Internal Medicine
DX: R56.9 Unspecified convulsions (principal)

== ENCOUNTER 2017-02-26 15:26 | Emergency (ER) | payer OTHER ==
[2017-02-26] MEDS: SODIUM BICARBONATE 325 MG TAB GT (17:55)
[2017-02-26] MEDS: CREON-12 CAPSULE GT (17:55)
== END 2017-02-26 19:20 | disposition home or self-care (01) ==
LOC: M ED 15:26
DX: K94.23 Gastrostomy malfunction (principal); Z79.01 Long term (current) use of anticoagulants; F79 Unspecified intellectual disabilities; Z87.891 Personal history of nicotine dependence; Z87.820 Personal history of traumatic brain injury; I10 Essential (primary) hypertension; G82.50 Quadriplegia, unspecified
CPT/HCPCS: 74018

== ENCOUNTER → 2017-02-26 | Outpatient (REF) | payer OTHER ==
[2017-02-26 10:59] LABS: HEMATOCRIT 39.9 % (42.0-52.0); HEMOGLOBIN 13.5 g/dl (14.0-18.0); MEAN CORPUSCULAR HEMOGLOBIN 29.8 pg (27.0-33.0); MEAN CORPUSCULAR HGB CONC 33.8 g/dl (32.0-36.5); MEAN CORPUSCULAR VOLUME 88.1 fl (80.0-96.0); PLATELET COUNT, AUTOMATED 328 10^3/uL (150-450); RED BLOOD COUNT 4.53 10^6/uL (4.30-6.10); RED CELL DISTRIBUTION WIDTH 12.3 % (11.5-14.5); WHITE BLOOD COUNT 9.6 10^3/uL (4.0-10.0)
[2017-02-26 11:26] LABS: ANION GAP 8 MEQ/L (8-16); BLOOD UREA NITROGEN 20 MG/DL (7-18); CALCIUM LEVEL 9.5 MG/DL (8.5-10.1); CARBON DIOXIDE LEVEL 28 MEQ/L (21-32); CHLORIDE LEVEL 105 MEQ/L (98-107); GLOMERULAR FILTRATION RATE > 60.0 (>60); GLUCOSE, FASTING 86 MG/DL (70-105); POTASSIUM SERUM 4.4 MEQ/L (3.5-5.1); SODIUM LEVEL 141 MEQ/L (136-145)
== END ==
DX: Z93.1 Gastrostomy status (principal)
CPT/HCPCS: 80048

== ENCOUNTER → 2017-03-04 | Outpatient (REF) | payer OTHER ==
[2017-03-04 11:13] LABS: HEMATOCRIT 43.5 % (42.0-52.0); HEMOGLOBIN 14.5 g/dl (14.0-18.0); MEAN CORPUSCULAR HEMOGLOBIN 29.4 pg (27.0-33.0); MEAN CORPUSCULAR HGB CONC 33.3 g/dl (32.0-36.5); MEAN CORPUSCULAR VOLUME 88.2 fl (80.0-96.0); PLATELET COUNT, AUTOMATED 394 10^3/uL (150-450); RED BLOOD COUNT 4.93 10^6/uL (4.30-6.10); RED CELL DISTRIBUTION WIDTH 12.4 % (11.5-14.5); WHITE BLOOD COUNT 9.7 10^3/uL (4.0-10.0)
[2017-03-04 11:36] LABS: ALBUMIN 3.7 GM/DL (3.2-5.2); ALBUMIN/GLOBULIN RATIO 1.09 (1.00-1.93); ALKALINE PHOSPHATASE 94 U/L (45-117); ALT/SGPT 35 U/L (12-78); ANION GAP 11 MEQ/L (8-16); AST/SGOT 13 U/L (7-37); BILIRUBIN,TOTAL 0.3 MG/DL (0.2-1.0); BLOOD UREA NITROGEN 23 MG/DL (7-18); CALCIUM LEVEL 9.3 MG/DL (8.5-10.1); CARBON DIOXIDE LEVEL 28 MEQ/L (21-32); CHLORIDE LEVEL 103 MEQ/L (98-107); CREATININE FOR GFR 0.66 MG/DL (0.70-1.30); GLOMERULAR FILTRATION RATE > 60.0 (>60); GLUCOSE, FASTING 98 MG/DL (70-105); POTASSIUM SERUM 4.3 MEQ/L (3.5-5.1); SODIUM LEVEL 142 MEQ/L (136-145); TOTAL PROTEIN 7.1 GM/DL (6.4-8.2)
== END ==
DX: I10 Essential (primary) hypertension (principal)
CPT/HCPCS: 80053

== ENCOUNTER → 2017-03-18 | Outpatient (REF) | payer OTHER ==
[2017-03-18 12:02] LABS: HEMATOCRIT 45.6 % (42.0-52.0); HEMOGLOBIN 15.4 g/dl (14.0-18.0); MEAN CORPUSCULAR HEMOGLOBIN 30.3 pg (27.0-33.0); MEAN CORPUSCULAR HGB CONC 33.8 g/dl (32.0-36.5); MEAN CORPUSCULAR VOLUME 89.8 fl (80.0-96.0); PLATELET COUNT, AUTOMATED 195 10^3/uL (150-450); RED BLOOD COUNT 5.08 10^6/uL (4.30-6.10); RED CELL DISTRIBUTION WIDTH 13.2 % (11.5-14.5); WHITE BLOOD COUNT 18.3 10^3/uL (4.0-10.0)
[2017-03-18 12:03] LABS: POSITIVE MORPH POS FLAG
[2017-03-18 12:29] LABS: ALBUMIN 4.3 GM/DL (3.2-5.2); ALBUMIN/GLOBULIN RATIO 1.23 (1.00-1.93); ALKALINE PHOSPHATASE 87 U/L (45-117); ALT/SGPT 31 U/L (12-78); ANION GAP 15 MEQ/L (8-16); AST/SGOT 24 U/L (7-37); BILIRUBIN,TOTAL 0.4 MG/DL (0.2-1.0); BLOOD UREA NITROGEN 24 MG/DL (7-18); CALCIUM LEVEL 9.6 MG/DL (8.5-10.1); CARBON DIOXIDE LEVEL 21 MEQ/L (21-32); CHLORIDE LEVEL 105 MEQ/L (98-107); CREATININE FOR GFR 0.83 MG/DL (0.70-1.30); GLOMERULAR FILTRATION RATE > 60.0 (>60); GLUCOSE, FASTING 148 MG/DL (70-100); POTASSIUM SERUM 4.1 MEQ/L (3.5-5.1); SODIUM LEVEL 141 MEQ/L (136-145); TOTAL PROTEIN 7.8 GM/DL (6.4-8.2)
== END ==
DX: R50.9 Fever, unspecified (principal)

== ENCOUNTER → 2017-03-19 | Outpatient (REF) | payer OTHER ==
[2017-03-19 10:37] LABS: HEMATOCRIT 41.9 % (42.0-52.0); HEMOGLOBIN 13.9 g/dl (14.0-18.0); MEAN CORPUSCULAR HEMOGLOBIN 29.6 pg (27.0-33.0); MEAN CORPUSCULAR HGB CONC 33.2 g/dl (32.0-36.5); MEAN CORPUSCULAR VOLUME 89.3 fl (80.0-96.0); PLATELET COUNT, AUTOMATED 263 10^3/uL (150-450); RED BLOOD COUNT 4.69 10^6/uL (4.30-6.10); RED CELL DISTRIBUTION WIDTH 13.7 % (11.5-14.5)
== END ==
DX: R50.9 Fever, unspecified (principal)

== ENCOUNTER → 2017-03-21 | Outpatient (REF) | payer OTHER ==
[2017-03-21 12:29] LABS: HEMATOCRIT 43.7 % (42.0-52.0); HEMOGLOBIN 14.5 g/dl (14.0-18.0); MEAN CORPUSCULAR HEMOGLOBIN 29.9 pg (27.0-33.0); MEAN CORPUSCULAR HGB CONC 33.2 g/dl (32.0-36.5); MEAN CORPUSCULAR VOLUME 90.1 fl (80.0-96.0); PLATELET COUNT, AUTOMATED 249 10^3/uL (150-450); RED BLOOD COUNT 4.85 10^6/uL (4.30-6.10); RED CELL DISTRIBUTION WIDTH 13.4 % (11.5-14.5)
[2017-03-21 12:40] LABS: ANION GAP 8 MEQ/L (8-16); BLOOD UREA NITROGEN 23 MG/DL (7-18); CALCIUM LEVEL 9.2 MG/DL (8.5-10.1); CARBON DIOXIDE LEVEL 30 MEQ/L (21-32); CHLORIDE LEVEL 106 MEQ/L (98-107); CREATININE FOR GFR 0.64 MG/DL (0.70-1.30); GLOMERULAR FILTRATION RATE > 60.0 (>60); GLUCOSE, FASTING 74 MG/DL (70-100); POTASSIUM SERUM 4.1 MEQ/L (3.5-5.1); SODIUM LEVEL 144 MEQ/L (136-145)
== END ==
DX: D72.829 Elevated white blood cell count, unspecified (principal)
CPT/HCPCS: 80048

== ENCOUNTER → 2017-04-08 | Outpatient (REF) | payer MEDICAID, OTHER | DX: R11.10 Vomiting, unspecified (principal) | CPT/HCPCS: 87086 ==

== ENCOUNTER → 2017-04-09 | Outpatient (REF) | payer MEDICAID, OTHER ==
[2017-04-09 11:33] LABS: ANION GAP 12 MEQ/L (8-16); BLOOD UREA NITROGEN 32 MG/DL (7-18); CARBON DIOXIDE LEVEL 27 MEQ/L (21-32); CHLORIDE LEVEL 104 MEQ/L (98-107); CREATININE FOR GFR 0.72 MG/DL (0.70-1.30); GLOMERULAR FILTRATION RATE > 60.0 (>60); GLUCOSE, FASTING 115 MG/DL (70-100); SODIUM LEVEL 143 MEQ/L (136-145)
[2017-04-09 14:39] LABS: HEMATOCRIT 46.4 % (42.0-52.0); HEMOGLOBIN 15.9 g/dl (14.0-18.0); MEAN CORPUSCULAR HEMOGLOBIN 30.8 pg (27.0-33.0); MEAN CORPUSCULAR HGB CONC 34.3 g/dl (32.0-36.5); MEAN CORPUSCULAR VOLUME 89.9 fl (80.0-96.0); PLATELET COUNT, AUTOMATED 338 10^3/uL (150-450); RED BLOOD COUNT 5.16 10^6/uL (4.30-6.10); RED CELL DISTRIBUTION WIDTH 14.1 % (11.5-14.5); WHITE BLOOD COUNT 22.4 10^3/uL (4.0-10.0)
[2017-04-11 14:17] LABS: LEVETIRACETAM (KEPPRA) 3.3 ug/mL (10.0-40.0)
== END ==
DX: G40.901 Epilepsy, unspecified, not intractable, with status epilepticus (principal)
CPT/HCPCS: 80048

== ENCOUNTER → 2017-04-10 | Outpatient (REF) | payer MEDICAID, OTHER ==
[2017-04-10 07:08] LABS: HEMATOCRIT 42.4 % (42.0-52.0); HEMOGLOBIN 14.2 g/dl (14.0-18.0); MEAN CORPUSCULAR HEMOGLOBIN 30.7 pg (27.0-33.0); MEAN CORPUSCULAR HGB CONC 33.5 g/dl (32.0-36.5); MEAN CORPUSCULAR VOLUME 91.8 fl (80.0-96.0); PLATELET COUNT, AUTOMATED 263 10^3/uL (150-450); RED BLOOD COUNT 4.62 10^6/uL (4.30-6.10); RED CELL DISTRIBUTION WIDTH 14.4 % (11.5-14.5); WHITE BLOOD COUNT 14.5 10^3/uL (4.0-10.0)
== END ==
DX: D72.829 Elevated white blood cell count, unspecified (principal)
CPT/HCPCS: 85027

== ENCOUNTER 2017-04-12 15:33 | Inpatient (IN) | payer MEDICAID, OTHER ==
[2017-04-12] MEDS: ONDANSETRON 4MG/2ML VIAL (J2405) IV (17:27)
[2017-04-12 17:29] LABS: BASO % 0.1 % (0.0-1.0); HEMATOCRIT 44.9 % (42.0-52.0); HEMOGLOBIN 15.7 g/dl (14.0-18.0); IMMATURE GRANULOCYTE % 0.6 % (0-3.0); LYMPH # 1.1 10^3/uL (1.5-4.5); LYMPH % 5.1 % (24.0-44.0); MEAN CORPUSCULAR HEMOGLOBIN 30.8 pg (27.0-33.0); MONO # 0.9 10^3/uL (0.0-0.8); MONO % 4.3 % (0.0-5.0); NEUTROPHILS # 18.6 10^3/uL (1.8-7.7); NEUTROPHILS % 89.9 % (36.0-66.0); PLATELET COUNT, AUTOMATED 323 10^3/uL (150-450); RED CELL DISTRIBUTION WIDTH 13.3 % (11.5-14.5); WHITE BLOOD COUNT 20.7 10^3/uL (4.0-10.0)
[2017-04-12 17:35] LABS: LACTIC ACID SEPSIS PROTOCOL 1.7 MMOL/L (0.4-2.0)
[2017-04-12 17:36] LABS: ALBUMIN 4.1 GM/DL (3.2-5.2); ALBUMIN/GLOBULIN RATIO 1.17 (1.00-1.93); ALKALINE PHOSPHATASE 72 U/L (45-117); ALT/SGPT 34 U/L (12-78); ANION GAP 11 MEQ/L (8-16); AST/SGOT 13 U/L (7-37); BILIRUBIN,DIRECT 0.2 MG/DL (0.0-0.2); BILIRUBIN,TOTAL 0.8 MG/DL (0.2-1.0); BLOOD UREA NITROGEN 19 MG/DL (7-18); CALCIUM LEVEL 9.3 MG/DL (8.5-10.1); CARBON DIOXIDE LEVEL 28 MEQ/L (21-32); CHLORIDE LEVEL 104 MEQ/L (98-107); CPK CREATINE PHOSPHOKINASE 63 U/L (39-308); GLOMERULAR FILTRATION RATE > 60.0 (>60); GLUCOSE, FASTING 126 MG/DL (70-100); MB/CK RELATIVE INDEX 1.58 (< OR =4); POTASSIUM SERUM 3.8 MEQ/L (3.5-5.1); SODIUM LEVEL 143 MEQ/L (136-145); TOTAL PROTEIN 7.6 GM/DL (6.4-8.2); TROPONIN I < 0.02 NG/ML (< 0.10)
[2017-04-12] MEDS: GASTROGRAFIN SOLUTION 30ML PO ×2 (18:15→18:50)
[2017-04-12 18:43] LABS: AMORPHOUS SEDIMENT RFX SMALL (NEGATIVE); KETONE, URINE AUTO RFX NEGATIVE (NEGATIVE); LEUKOCYTE ESTERASE UR AUTO RFX NEGATIVE (NEGATIVE); MUCUS, URINE RFX SMALL (NEGATIVE); NITRITE, URINE AUTO RFX NEGATIVE (NEGATIVE); RBC, URINE AUTO RFX 2 /HPF (0-3); SPECIFIC GRAVITY UR AUTO RFX 1.019 (1.002-1.035); SQUAM EPITHELIAL CELL UR AURFX 0 /HPF (0-6); WBC, URINE AUTO RFX 1 /HPF (0-3)
[2017-04-12] MEDS ORDERED: ISOVUE-370 76% 100ML VIAL (Q9967) As Ordered (19:47)
[2017-04-12] MEDS ORDERED: PANTOPRAZOLE 40MG TAB (PROTONIX) PO (21:00)
[2017-04-12] MEDS: LevoFLOXacin IV 750 MG in APPROPRIATE DILUENT 1 EA IV (22:03)
[2017-04-12] MEDS: PANTOPRAZOLE 40MG INJ (PROTONIX) (C9113) IV (23:15)
[2017-04-12] MEDS: NS 1,000 ML IV (23:16)
[2017-04-12] MEDS ORDERED: BISACODYL 10 MG SUPP PR (23:45)
[2017-04-12] MEDS ORDERED: ALBUTEROL SULFATE 2.5 MG/0.5 ML INH NEB SOLN INH (23:45)
[2017-04-12] MEDS ORDERED: MOM 30ML SUSPENSION UDC PEG (23:45)
[2017-04-12] MEDS ORDERED: PROCHLORPERAZINE 25 MG SUPP PR (23:45)
[2017-04-13] MEDS: **hydrALAZINE** 10 MG TAB PEG ×4 (00:41→21:32)
[2017-04-13] MEDS: RIVAROXABAN 20 MG TAB (XARELTO) PEG ×2 (00:42→21:30)
[2017-04-13] MEDS: METOPROLOL TART 25 MG TABLET PEG ×3 (00:42→21:32)
[2017-04-13] MEDS: BACLOFEN 10 MG TAB PEG ×4 (00:42→21:30)
[2017-04-13] MEDS: FAMOTIDINE 20 MG TAB PEG ×2 (00:43→21:30)
[2017-04-13] MEDS: POLYVINYL ALCOHOL OPHTH SOLN 15 ML(LIQUITEARS) OU ×2 (01:00→21:33)
[2017-04-13] MEDS: levETIRAcetam ORAL SOLUTION 500 MG/5 ML UDC PEG ×3 (01:00→21:29)
[2017-04-13 01:31] LABS: CPK CREATINE PHOSPHOKINASE 40 U/L (39-308); TROPONIN I < 0.02 NG/ML (< 0.10)
[2017-04-13 05:25] LABS: BASO % 0.3 % (0.0-1.0); EOS # 0.1 10^3/uL (0.0-0.50); EOS % 0.7 % (0.0-3.0); HEMATOCRIT 41.8 % (42.0-52.0); HEMOGLOBIN 14.1 g/dl (14.0-18.0); IMMATURE GRANULOCYTE % 0.5 % (0-3.0); LYMPH # 1.5 10^3/uL (1.5-4.5); LYMPH % 9.3 % (24.0-44.0); MEAN CORPUSCULAR HEMOGLOBIN 30.6 pg (27.0-33.0); MEAN CORPUSCULAR HGB CONC 33.7 g/dl (32.0-36.5); MEAN CORPUSCULAR VOLUME 90.7 fl (80.0-96.0); MONO # 1.2 10^3/uL (0.0-0.8); MONO % 7.8 % (0.0-5.0); NEUTROPHILS # 12.9 10^3/uL (1.8-7.7); NEUTROPHILS % 81.4 % (36.0-66.0); PLATELET COUNT, AUTOMATED 278 10^3/uL (150-450); RED BLOOD COUNT 4.61 10^6/uL (4.30-6.10); RED CELL DISTRIBUTION WIDTH 13.7 % (11.5-14.5); WHITE BLOOD COUNT 15.8 10^3/uL (4.0-10.0)
[2017-04-13 05:48] LABS: ALBUMIN 3.5 GM/DL (3.2-5.2); ALBUMIN/GLOBULIN RATIO 1.03 (1.00-1.93); ALKALINE PHOSPHATASE 60 U/L (45-117); ALT/SGPT 30 U/L (12-78); ANION GAP 10 MEQ/L (8-16); AST/SGOT 11 U/L (7-37); BILIRUBIN,TOTAL 0.9 MG/DL (0.2-1.0); BLOOD UREA NITROGEN 19 MG/DL (7-18); CALCIUM LEVEL 8.9 MG/DL (8.5-10.1); CARBON DIOXIDE LEVEL 25 MEQ/L (21-32); CHLORIDE LEVEL 108 MEQ/L (98-107); CPK CREATINE PHOSPHOKINASE 39 U/L (39-308); CREATININE FOR GFR 0.68 MG/DL (0.70-1.30); GLOMERULAR FILTRATION RATE > 60.0 (>60); GLUCOSE, FASTING 97 MG/DL (70-100); MB/CK RELATIVE INDEX 2.56 (< OR =4); POTASSIUM SERUM 3.7 MEQ/L (3.5-5.1); SODIUM LEVEL 143 MEQ/L (136-145); TOTAL PROTEIN 6.9 GM/DL (6.4-8.2); TROPONIN I < 0.02 NG/ML (< 0.10)
[2017-04-13] MEDS: amLODIPine 10 MG TAB PEG (09:00)
[2017-04-13] MEDS ORDERED: ENOXAPARIN 40 MG/0.4 ML SYRINGE (J1650) SC (09:00)
[2017-04-13] MEDS: ASPIRIN 81 MG CHEW TABLET PEG (09:57)
[2017-04-13] MEDS: PANTOPRAZOLE 40MG INJ (PROTONIX) (C9113) IV ×2 (09:57→21:30)
[2017-04-13] MEDS: FLUTICASONE PROP 0.05% NASAL SPRAY 16 GM (FLONASE) (09:57)
[2017-04-13] MEDS: NS 1,000 ML IV (12:39)
[2017-04-13 14:28] LABS: BEDSIDE GLUCOSE 97 MG/DL (70-105)
[2017-04-13] MEDS: LevoFLOXacin IV 750 MG in APPROPRIATE DILUENT 1 EA IV (22:29)
[2017-04-13 23:26] LABS: BEDSIDE GLUCOSE 129 MG/DL (70-105)
[2017-04-14 05:23] LABS: BASO # 0.1 10^3/uL (0.0-0.2); BASO % 0.5 % (0.0-1.0); EOS # 0.2 10^3/uL (0.0-0.50); EOS % 2.3 % (0.0-3.0); HEMATOCRIT 37.8 % (42.0-52.0); HEMOGLOBIN 12.7 g/dl (14.0-18.0); IMMATURE GRANULOCYTE % 0.7 % (0-3.0); LYMPH # 2.4 10^3/uL (1.5-4.5); LYMPH % 25.7 % (24.0-44.0); MEAN CORPUSCULAR HEMOGLOBIN 30.5 pg (27.0-33.0); MEAN CORPUSCULAR HGB CONC 33.6 g/dl (32.0-36.5); MEAN CORPUSCULAR VOLUME 90.9 fl (80.0-96.0); MONO % 11.2 % (0.0-5.0); NEUTROPHILS # 5.5 10^3/uL (1.8-7.7); NEUTROPHILS % 59.6 % (36.0-66.0); PLATELET COUNT, AUTOMATED 240 10^3/uL (150-450); RED BLOOD COUNT 4.16 10^6/uL (4.30-6.10); RED CELL DISTRIBUTION WIDTH 13.6 % (11.5-14.5); WHITE BLOOD COUNT 9.2 10^3/uL (4.0-10.0)
[2017-04-14 05:43] LABS: ALBUMIN 3.1 GM/DL (3.2-5.2); ALBUMIN/GLOBULIN RATIO 0.94 (1.00-1.93); ALKALINE PHOSPHATASE 56 U/L (45-117); ALT/SGPT 29 U/L (12-78); ANION GAP 7 MEQ/L (8-16); AST/SGOT 11 U/L (7-37); BILIRUBIN,TOTAL 0.4 MG/DL (0.2-1.0); BLOOD UREA NITROGEN 20 MG/DL (7-18); CALCIUM LEVEL 8.4 MG/DL (8.5-10.1); CARBON DIOXIDE LEVEL 25 MEQ/L (21-32); CHLORIDE LEVEL 111 MEQ/L (98-107); CREATININE FOR GFR 0.57 MG/DL (0.70-1.30); GLOMERULAR FILTRATION RATE > 60.0 (>60); GLUCOSE, FASTING 93 MG/DL (70-100); MAGNESIUM LEVEL 2.2 MG/DL (1.8-2.4); POTASSIUM SERUM 3.8 MEQ/L (3.5-5.1); SODIUM LEVEL 143 MEQ/L (136-145); TOTAL PROTEIN 6.4 GM/DL (6.4-8.2)
[2017-04-14] MEDS: PANTOPRAZOLE 40MG INJ (PROTONIX) (C9113) IV ×2 (08:58→21:35)
[2017-04-14] MEDS: ASPIRIN 81 MG CHEW TABLET PEG (08:58)
[2017-04-14] MEDS: BACLOFEN 10 MG TAB PEG ×3 (08:59→21:37)
[2017-04-14] MEDS: METOPROLOL TART 25 MG TABLET PEG ×2 (08:59→21:38)
[2017-04-14] MEDS: **hydrALAZINE** 10 MG TAB PEG ×3 (08:59→21:37)
[2017-04-14] MEDS: amLODIPine 10 MG TAB PEG (08:59)
[2017-04-14] MEDS: levETIRAcetam ORAL SOLUTION 500 MG/5 ML UDC PEG ×2 (09:00→21:35)
[2017-04-14] MEDS: FLUTICASONE PROP 0.05% NASAL SPRAY 16 GM (FLONASE) (09:00)
[2017-04-14 12:05] LABS: BEDSIDE GLUCOSE 117 MG/DL (70-105)
[2017-04-14] MEDS: LevoFLOXacin IV 750 MG in APPROPRIATE DILUENT 1 EA IV (21:35)
[2017-04-14] MEDS: FAMOTIDINE 20 MG TAB PEG (21:38)
[2017-04-14] MEDS: RIVAROXABAN 20 MG TAB (XARELTO) PEG (21:38)
[2017-04-14] MEDS: POLYVINYL ALCOHOL OPHTH SOLN 15 ML(LIQUITEARS) OU (21:39)
[2017-04-15] MEDS: ACETAMINOPHEN TAB 650MG DOSE (2X325MG) PO ×2 (02:30→10:15)
[2017-04-15] MEDS: ONDANSETRON 4MG/2ML VIAL (J2405) IV (06:27)
[2017-04-15 08:51] LABS: BASO # 0.1 10^3/uL (0.0-0.2); BASO % 0.2 % (0.0-1.0); EOS % 0.1 % (0.0-3.0); HEMATOCRIT 40.2 % (42.0-52.0); HEMOGLOBIN 13.8 g/dl (14.0-18.0); IMMATURE GRANULOCYTE % 0.5 % (0-3.0); LYMPH # 1.1 10^3/uL (1.5-4.5); LYMPH % 5.2 % (24.0-44.0); MEAN CORPUSCULAR HEMOGLOBIN 30.8 pg (27.0-33.0); MEAN CORPUSCULAR HGB CONC 34.3 g/dl (32.0-36.5); MEAN CORPUSCULAR VOLUME 89.7 fl (80.0-96.0); MONO # 1.2 10^3/uL (0.0-0.8); MONO % 5.5 % (0.0-5.0); NEUTROPHILS # 19.2 10^3/uL (1.8-7.7); NEUTROPHILS % 88.5 % (36.0-66.0); PLATELET COUNT, AUTOMATED 263 10^3/uL (150-450); RED BLOOD COUNT 4.48 10^6/uL (4.30-6.10); RED CELL DISTRIBUTION WIDTH 13.4 % (11.5-14.5); WHITE BLOOD COUNT 21.8 10^3/uL (4.0-10.0)
[2017-04-15 09:00] LABS: BEDSIDE GLUCOSE 115 MG/DL (70-105)
[2017-04-15 09:00] LABS: BEDSIDE GLUCOSE 128 MG/DL (70-105)
[2017-04-15 09:00] LABS: BEDSIDE GLUCOSE 113 MG/DL (70-105)
[2017-04-15 09:17] LABS: ALBUMIN 3.5 GM/DL (3.2-5.2); ALBUMIN/GLOBULIN RATIO 1.21 (1.00-1.93); ALKALINE PHOSPHATASE 60 U/L (45-117); ALT/SGPT 33 U/L (12-78); ANION GAP 10 MEQ/L (8-16); AST/SGOT 18 U/L (7-37); BILIRUBIN,TOTAL 0.9 MG/DL (0.2-1.0); BLOOD UREA NITROGEN 16 MG/DL (7-18); CALCIUM LEVEL 8.8 MG/DL (8.5-10.1); CARBON DIOXIDE LEVEL 24 MEQ/L (21-32); CHLORIDE LEVEL 106 MEQ/L (98-107); CREATININE FOR GFR 0.77 MG/DL (0.70-1.30); GLOMERULAR FILTRATION RATE > 60.0 (>60); GLUCOSE, FASTING 144 MG/DL (70-100); POTASSIUM SERUM 3.6 MEQ/L (3.5-5.1); SODIUM LEVEL 140 MEQ/L (136-145); TOTAL PROTEIN 6.4 GM/DL (6.4-8.2)
[2017-04-15] MEDS: FLUTICASONE PROP 0.05% NASAL SPRAY 16 GM (FLONASE) (09:55)
[2017-04-15] MEDS: **hydrALAZINE** 10 MG TAB PEG ×3 (09:55→21:00)
[2017-04-15] MEDS: METOPROLOL TART 25 MG TABLET PEG ×2 (09:55→21:55)
[2017-04-15] MEDS: levETIRAcetam ORAL SOLUTION 500 MG/5 ML UDC PEG ×2 (09:55→21:55)
[2017-04-15] MEDS: ASPIRIN 81 MG CHEW TABLET PEG (09:55)
[2017-04-15] MEDS: PANTOPRAZOLE 40MG INJ (PROTONIX) (C9113) IV ×2 (09:55→21:55)
[2017-04-15] MEDS: BACLOFEN 10 MG TAB PEG ×3 (09:55→21:55)
[2017-04-15] MEDS: amLODIPine 10 MG TAB PEG (09:55)
[2017-04-15] MEDS: metroNIDAZOLE 500 MG in APPROPRIATE DILUENT 1 EA IV ×2 (13:55→23:49)
[2017-04-15 14:25] LABS: KETONE, URINE AUTO RFX NEGATIVE (NEGATIVE); LEUKOCYTE ESTERASE UR AUTO RFX NEGATIVE (NEGATIVE); MUCUS, URINE RFX SMALL (NEGATIVE); NITRITE, URINE AUTO RFX NEGATIVE (NEGATIVE); RBC, URINE AUTO RFX 4 /HPF (0-3); SPECIFIC GRAVITY UR AUTO RFX 1.021 (1.002-1.035); SQUAM EPITHELIAL CELL UR AURFX 0 /HPF (0-6); WBC, URINE AUTO RFX 2 /HPF (0-3)
[2017-04-15 17:05] LABS: BEDSIDE GLUCOSE 173 MG/DL (70-105)
[2017-04-15 17:47] LABS: BEDSIDE GLUCOSE 102 MG/DL (70-105)
[2017-04-15] MEDS: LevoFLOXacin IV 750 MG in APPROPRIATE DILUENT 1 EA IV (21:54)
[2017-04-15] MEDS: FAMOTIDINE 20 MG TAB PEG (21:55)
[2017-04-15] MEDS: RIVAROXABAN 20 MG TAB (XARELTO) PEG (21:55)
[2017-04-15] MEDS: POLYVINYL ALCOHOL OPHTH SOLN 15 ML(LIQUITEARS) OU (21:56)
[2017-04-15 23:50] LABS: BEDSIDE GLUCOSE 133 MG/DL (70-105)
[2017-04-16] MEDS: metroNIDAZOLE 500 MG in APPROPRIATE DILUENT 1 EA IV ×3 (05:22→20:32)
[2017-04-16 06:28] LABS: BEDSIDE GLUCOSE 118 MG/DL (70-105)
[2017-04-16 06:50] LABS: BASO # 0.1 10^3/uL (0.0-0.2); BASO % 0.3 % (0.0-1.0); EOS # 0.3 10^3/uL (0.0-0.50); EOS % 1.6 % (0.0-3.0); HEMATOCRIT 36.6 % (42.0-52.0); HEMOGLOBIN 12.4 g/dl (14.0-18.0); IMMATURE GRANULOCYTE % 0.7 % (0-3.0); LYMPH # 1.9 10^3/uL (1.5-4.5); LYMPH % 11.9 % (24.0-44.0); MEAN CORPUSCULAR HEMOGLOBIN 30.5 pg (27.0-33.0); MEAN CORPUSCULAR HGB CONC 33.9 g/dl (32.0-36.5); MEAN CORPUSCULAR VOLUME 89.9 fl (80.0-96.0); MONO # 1.3 10^3/uL (0.0-0.8); MONO % 8.1 % (0.0-5.0); NEUTROPHILS # 12.1 10^3/uL (1.8-7.7); NEUTROPHILS % 77.4 % (36.0-66.0); PLATELET COUNT, AUTOMATED 242 10^3/uL (150-450); RED BLOOD COUNT 4.07 10^6/uL (4.30-6.10); RED CELL DISTRIBUTION WIDTH 13.7 % (11.5-14.5); WHITE BLOOD COUNT 15.6 10^3/uL (4.0-10.0)
[2017-04-16 07:05] LABS: ALBUMIN 2.9 GM/DL (3.2-5.2); ALBUMIN/GLOBULIN RATIO 0.85 (1.00-1.93); ALKALINE PHOSPHATASE 56 U/L (45-117); ALT/SGPT 27 U/L (12-78); ANION GAP 7 MEQ/L (8-16); AST/SGOT 10 U/L (7-37); BILIRUBIN,TOTAL 0.6 MG/DL (0.2-1.0); BLOOD UREA NITROGEN 16 MG/DL (7-18); CALCIUM LEVEL 8.3 MG/DL (8.5-10.1); CARBON DIOXIDE LEVEL 26 MEQ/L (21-32); CHLORIDE LEVEL 107 MEQ/L (98-107); CREATININE FOR GFR 0.55 MG/DL (0.70-1.30); GLOMERULAR FILTRATION RATE > 60.0 (>60); GLUCOSE, FASTING 110 MG/DL (70-100); MAGNESIUM LEVEL 2.3 MG/DL (1.8-2.4); POTASSIUM SERUM 3.4 MEQ/L (3.5-5.1); SODIUM LEVEL 140 MEQ/L (136-145); TOTAL PROTEIN 6.3 GM/DL (6.4-8.2)
[2017-04-16] MEDS: **hydrALAZINE** 10 MG TAB PEG ×3 (08:18→20:33)
[2017-04-16] MEDS: ASPIRIN 81 MG CHEW TABLET PEG (08:36)
[2017-04-16] MEDS: levETIRAcetam ORAL SOLUTION 500 MG/5 ML UDC PEG ×2 (08:36→20:33)
[2017-04-16] MEDS: amLODIPine 10 MG TAB PEG (08:37)
[2017-04-16] MEDS: FLUTICASONE PROP 0.05% NASAL SPRAY 16 GM (FLONASE) (08:37)
[2017-04-16] MEDS: METOPROLOL TART 25 MG TABLET PEG ×2 (08:37→20:34)
[2017-04-16] MEDS: BACLOFEN 10 MG TAB PEG ×3 (08:37→20:33)
[2017-04-16] MEDS: PANTOPRAZOLE 40MG INJ (PROTONIX) (C9113) IV ×2 (08:37→20:32)
[2017-04-16] MEDS: POTASSIUM CHLORIDE 10% LIQ 20 MEQ/15 ML UDC PEG (11:50)
[2017-04-16 17:36] LABS: BEDSIDE GLUCOSE 121 MG/DL (70-105)
[2017-04-16] MEDS: FAMOTIDINE 20 MG TAB PEG (20:32)
[2017-04-16] MEDS: LevoFLOXacin IV 750 MG in APPROPRIATE DILUENT 1 EA IV (20:32)
[2017-04-16] MEDS: RIVAROXABAN 20 MG TAB (XARELTO) PEG (20:33)
[2017-04-16] MEDS: POLYVINYL ALCOHOL OPHTH SOLN 15 ML(LIQUITEARS) OU (20:34)
[2017-04-16] MEDS: ONDANSETRON 4MG/2ML VIAL (J2405) IV (23:16)
[2017-04-17 00:32] LABS: BEDSIDE GLUCOSE 101 MG/DL (70-105)
[2017-04-17] MEDS: ONDANSETRON 4MG/2ML VIAL (J2405) IV ×2 (03:38→08:16)
[2017-04-17] MEDS: metroNIDAZOLE 500 MG in APPROPRIATE DILUENT 1 EA IV ×3 (04:17→21:10)
[2017-04-17 06:15] LABS: BASO # 0.1 10^3/uL (0.0-0.2); BASO % 0.5 % (0.0-1.0); EOS # 0.2 10^3/uL (0.0-0.50); EOS % 1.3 % (0.0-3.0); HEMATOCRIT 41.4 % (42.0-52.0); HEMOGLOBIN 14.2 g/dl (14.0-18.0); IMMATURE GRANULOCYTE % 0.8 % (0-3.0); LYMPH # 1.7 10^3/uL (1.5-4.5); LYMPH % 12.8 % (24.0-44.0); MEAN CORPUSCULAR HEMOGLOBIN 30.4 pg (27.0-33.0); MEAN CORPUSCULAR HGB CONC 34.3 g/dl (32.0-36.5); MEAN CORPUSCULAR VOLUME 88.7 fl (80.0-96.0); MONO # 1.5 10^3/uL (0.0-0.8); MONO % 11.2 % (0.0-5.0); NEUTROPHILS # 9.6 10^3/uL (1.8-7.7); NEUTROPHILS % 73.4 % (36.0-66.0); PLATELET COUNT, AUTOMATED 281 10^3/uL (150-450); RED BLOOD COUNT 4.67 10^6/uL (4.30-6.10); RED CELL DISTRIBUTION WIDTH 13.2 % (11.5-14.5); WHITE BLOOD COUNT 13.1 10^3/uL (4.0-10.0)
[2017-04-17 06:17] LABS: BEDSIDE GLUCOSE 100 MG/DL (70-105)
[2017-04-17 06:32] LABS: ALBUMIN 3.3 GM/DL (3.2-5.2); ALBUMIN/GLOBULIN RATIO 0.92 (1.00-1.93); ALKALINE PHOSPHATASE 57 U/L (45-117); ALT/SGPT 25 U/L (12-78); ANION GAP 9 MEQ/L (8-16); AST/SGOT 13 U/L (7-37); BILIRUBIN,TOTAL 0.4 MG/DL (0.2-1.0); BLOOD UREA NITROGEN 15 MG/DL (7-18); CALCIUM LEVEL 8.7 MG/DL (8.5-10.1); CARBON DIOXIDE LEVEL 24 MEQ/L (21-32); CHLORIDE LEVEL 107 MEQ/L (98-107); CREATININE FOR GFR 0.59 MG/DL (0.70-1.30); GLOMERULAR FILTRATION RATE > 60.0 (>60); GLUCOSE, FASTING 106 MG/DL (70-100); MAGNESIUM LEVEL 2.3 MG/DL (1.8-2.4); POTASSIUM SERUM 3.4 MEQ/L (3.5-5.1); SODIUM LEVEL 140 MEQ/L (136-145); TOTAL PROTEIN 6.9 GM/DL (6.4-8.2)
[2017-04-17] MEDS: **hydrALAZINE** 10 MG TAB PEG ×3 (08:14→21:12)
[2017-04-17] MEDS: levETIRAcetam ORAL SOLUTION 500 MG/5 ML UDC PEG ×2 (08:15→21:10)
[2017-04-17] MEDS: BACLOFEN 10 MG TAB PEG ×3 (08:15→21:11)
[2017-04-17] MEDS: METOPROLOL TART 25 MG TABLET PEG ×2 (08:15→21:12)
[2017-04-17] MEDS: ASPIRIN 81 MG CHEW TABLET PEG (08:16)
[2017-04-17] MEDS: FLUTICASONE PROP 0.05% NASAL SPRAY 16 GM (FLONASE) (08:16)
[2017-04-17] MEDS: PANTOPRAZOLE 40MG INJ (PROTONIX) (C9113) IV ×2 (08:16→21:11)
[2017-04-17] MEDS: amLODIPine 10 MG TAB PEG (08:16)
[2017-04-17] MEDS: POTASSIUM CHLORIDE 10% LIQ 20 MEQ/15 ML UDC PEG (10:11)
[2017-04-17 12:10] LABS: BEDSIDE GLUCOSE 92 MG/DL (70-105)
[2017-04-17] MEDS: METOCLOPRAMIDE HCL LIQUID 10 MG/10 ML UDC PEG ×2 (12:26→17:13)
[2017-04-17 17:21] LABS: BEDSIDE GLUCOSE 96 MG/DL (70-105)
[2017-04-17] MEDS: LevoFLOXacin IV 750 MG in APPROPRIATE DILUENT 1 EA IV (21:11)
[2017-04-17] MEDS: FAMOTIDINE 20 MG TAB PEG (21:11)
[2017-04-17] MEDS: RIVAROXABAN 20 MG TAB (XARELTO) PEG (21:11)
[2017-04-17] MEDS: POLYVINYL ALCOHOL OPHTH SOLN 15 ML(LIQUITEARS) OU (21:12)
[2017-04-18] MEDS: METOCLOPRAMIDE HCL LIQUID 10 MG/10 ML UDC PEG ×5 (00:19→23:11)
[2017-04-18 00:57] LABS: BEDSIDE GLUCOSE 155 MG/DL (70-105)
[2017-04-18] MEDS: metroNIDAZOLE 500 MG in APPROPRIATE DILUENT 1 EA IV ×3 (04:16→21:45)
[2017-04-18 06:52] LABS: BASO # 0.1 10^3/uL (0.0-0.2); BASO % 0.5 % (0.0-1.0); EOS # 0.3 10^3/uL (0.0-0.50); EOS % 2.3 % (0.0-3.0); HEMATOCRIT 40.4 % (42.0-52.0); IMMATURE GRANULOCYTE % 1.1 % (0-3.0); LYMPH # 1.7 10^3/uL (1.5-4.5); LYMPH % 15.7 % (24.0-44.0); MEAN CORPUSCULAR HEMOGLOBIN 30.7 pg (27.0-33.0); MEAN CORPUSCULAR HGB CONC 34.7 g/dl (32.0-36.5); MEAN CORPUSCULAR VOLUME 88.6 fl (80.0-96.0); MONO % 8.7 % (0.0-5.0); NEUTROPHILS # 7.8 10^3/uL (1.8-7.7); NEUTROPHILS % 71.7 % (36.0-66.0); PLATELET COUNT, AUTOMATED 294 10^3/uL (150-450); RED BLOOD COUNT 4.56 10^6/uL (4.30-6.10); RED CELL DISTRIBUTION WIDTH 13.3 % (11.5-14.5); WHITE BLOOD COUNT 10.9 10^3/uL (4.0-10.0)
[2017-04-18 07:14] LABS: ALBUMIN 3.2 GM/DL (3.2-5.2); ALBUMIN/GLOBULIN RATIO 1.14 (1.00-1.93); ALKALINE PHOSPHATASE 63 U/L (45-117); ALT/SGPT 23 U/L (12-78); ANION GAP 9 MEQ/L (8-16); AST/SGOT 14 U/L (7-37); BILIRUBIN,TOTAL 0.3 MG/DL (0.2-1.0); BLOOD UREA NITROGEN 15 MG/DL (7-18); CALCIUM LEVEL 8.5 MG/DL (8.5-10.1); CARBON DIOXIDE LEVEL 26 MEQ/L (21-32); CHLORIDE LEVEL 104 MEQ/L (98-107); CREATININE FOR GFR 0.61 MG/DL (0.70-1.30); GLOMERULAR FILTRATION RATE > 60.0 (>60); GLUCOSE, FASTING 130 MG/DL (70-100); POTASSIUM SERUM 3.7 MEQ/L (3.5-5.1); SODIUM LEVEL 139 MEQ/L (136-145)
[2017-04-18 08:32] LABS: BEDSIDE GLUCOSE 82 MG/DL (70-105)
[2017-04-18] MEDS: METOPROLOL TART 25 MG TABLET PEG ×2 (09:00→21:47)
[2017-04-18] MEDS: ASPIRIN 81 MG CHEW TABLET PEG (10:01)
[2017-04-18] MEDS: BACLOFEN 10 MG TAB PEG ×3 (10:01→21:48)
[2017-04-18] MEDS: levETIRAcetam ORAL SOLUTION 500 MG/5 ML UDC PEG ×2 (10:01→21:46)
[2017-04-18] MEDS: PANTOPRAZOLE 40MG INJ (PROTONIX) (C9113) IV ×2 (10:01→21:45)
[2017-04-18] MEDS: FLUTICASONE PROP 0.05% NASAL SPRAY 16 GM (FLONASE) (10:04)
[2017-04-18 12:06] LABS: BEDSIDE GLUCOSE 127 MG/DL (70-105)
[2017-04-18 17:14] LABS: BEDSIDE GLUCOSE 87 MG/DL (70-105)
[2017-04-18] MEDS: POLYVINYL ALCOHOL OPHTH SOLN 15 ML(LIQUITEARS) OU (21:00)
[2017-04-18] MEDS: FAMOTIDINE 20 MG TAB PEG (21:47)
[2017-04-18] MEDS: RIVAROXABAN 20 MG TAB (XARELTO) PEG (21:48)
[2017-04-18] MEDS: LevoFLOXacin IV 750 MG in APPROPRIATE DILUENT 1 EA IV (23:11)
[2017-04-19 01:36] LABS: BEDSIDE GLUCOSE 98 MG/DL (70-105)
[2017-04-19] MEDS: metroNIDAZOLE 500 MG in APPROPRIATE DILUENT 1 EA IV ×3 (05:18→22:57)
[2017-04-19] MEDS: METOCLOPRAMIDE HCL LIQUID 10 MG/10 ML UDC PEG ×3 (05:20→18:44)
[2017-04-19 06:30] LABS: BASO # 0.1 10^3/uL (0.0-0.2); BASO % 0.7 % (0.0-1.0); EOS # 0.2 10^3/uL (0.0-0.50); HEMATOCRIT 41.7 % (42.0-52.0); HEMOGLOBIN 14.2 g/dl (14.0-18.0); IMMATURE GRANULOCYTE % 1.1 % (0-3.0); LYMPH # 1.6 10^3/uL (1.5-4.5); LYMPH % 15.1 % (24.0-44.0); MEAN CORPUSCULAR HGB CONC 34.1 g/dl (32.0-36.5); MONO # 0.9 10^3/uL (0.0-0.8); MONO % 8.3 % (0.0-5.0); NEUTROPHILS # 7.8 10^3/uL (1.8-7.7); NEUTROPHILS % 72.8 % (36.0-66.0); PLATELET COUNT, AUTOMATED 320 10^3/uL (150-450); RED BLOOD COUNT 4.74 10^6/uL (4.30-6.10); RED CELL DISTRIBUTION WIDTH 13.2 % (11.5-14.5); WHITE BLOOD COUNT 10.7 10^3/uL (4.0-10.0)
[2017-04-19 06:49] LABS: ALBUMIN 3.2 GM/DL (3.2-5.2); ALBUMIN/GLOBULIN RATIO 0.94 (1.00-1.93); ALKALINE PHOSPHATASE 56 U/L (45-117); ALT/SGPT 23 U/L (12-78); ANION GAP 12 MEQ/L (8-16); AST/SGOT 11 U/L (7-37); BILIRUBIN,TOTAL 0.4 MG/DL (0.2-1.0); BLOOD UREA NITROGEN 12 MG/DL (7-18); CALCIUM LEVEL 8.8 MG/DL (8.5-10.1); CARBON DIOXIDE LEVEL 25 MEQ/L (21-32); CHLORIDE LEVEL 103 MEQ/L (98-107); CREATININE FOR GFR 0.68 MG/DL (0.70-1.30); GLOMERULAR FILTRATION RATE > 60.0 (>60); GLUCOSE, FASTING 132 MG/DL (70-100); MAGNESIUM LEVEL 2.1 MG/DL (1.8-2.4); POTASSIUM SERUM 3.4 MEQ/L (3.5-5.1); SODIUM LEVEL 140 MEQ/L (136-145); TOTAL PROTEIN 6.6 GM/DL (6.4-8.2)
[2017-04-19] MEDS: ASPIRIN 81 MG CHEW TABLET PEG (09:12)
[2017-04-19] MEDS: PANTOPRAZOLE 40MG INJ (PROTONIX) (C9113) IV ×2 (09:13→22:26)
[2017-04-19] MEDS: levETIRAcetam ORAL SOLUTION 500 MG/5 ML UDC PEG ×2 (09:13→21:00)
[2017-04-19] MEDS: BACLOFEN 10 MG TAB PEG ×3 (09:13→22:29)
[2017-04-19] MEDS: METOPROLOL TART 25 MG TABLET PEG ×2 (09:13→22:29)
[2017-04-19] MEDS: FLUTICASONE PROP 0.05% NASAL SPRAY 16 GM (FLONASE) (09:14)
[2017-04-19] MEDS: POTASSIUM CHLORIDE 10% LIQ 20 MEQ/15 ML UDC PO (12:28)
[2017-04-19] MEDS: SUCRALFATE SUSP 1GM/10ML UD PO ×2 (15:05→18:44)
[2017-04-19 17:39] LABS: BEDSIDE GLUCOSE 91 MG/DL (70-105)
[2017-04-19] MEDS: POLYVINYL ALCOHOL OPHTH SOLN 15 ML(LIQUITEARS) OU (21:00)
[2017-04-19] MEDS: LevoFLOXacin IV 750 MG in APPROPRIATE DILUENT 1 EA IV (22:25)
[2017-04-19] MEDS: FAMOTIDINE 20 MG TAB PEG (22:26)
[2017-04-19] MEDS: RIVAROXABAN 20 MG TAB (XARELTO) PEG (22:26)
[2017-04-20] MEDS: SUCRALFATE SUSP 1GM/10ML UD PO ×5 (00:37→23:57)
[2017-04-20] MEDS: METOCLOPRAMIDE HCL LIQUID 10 MG/10 ML UDC PEG ×5 (00:37→23:57)
[2017-04-20 03:53] LABS: BEDSIDE GLUCOSE 99 MG/DL (70-105)
[2017-04-20] MEDS: metroNIDAZOLE 500 MG in APPROPRIATE DILUENT 1 EA IV ×3 (05:22→21:28)
[2017-04-20] MEDS ORDERED: SUCRALFATE SUSP 1GM/10ML UD As Ordered (06:31)
[2017-04-20] MEDS: METOPROLOL TART 25 MG TABLET PEG ×2 (10:43→21:00)
[2017-04-20] MEDS: ASPIRIN 81 MG CHEW TABLET PEG (10:43)
[2017-04-20] MEDS: BACLOFEN 10 MG TAB PEG ×3 (10:43→21:28)
[2017-04-20] MEDS: FLUTICASONE PROP 0.05% NASAL SPRAY 16 GM (FLONASE) (10:44)
[2017-04-20] MEDS: PANTOPRAZOLE 40MG INJ (PROTONIX) (C9113) IV ×2 (10:44→21:00)
[2017-04-20] MEDS: levETIRAcetam ORAL SOLUTION 500 MG/5 ML UDC PEG ×2 (10:44→21:28)
[2017-04-20 12:17] LABS: BEDSIDE GLUCOSE 115 MG/DL (70-105)
[2017-04-20 17:59] LABS: BEDSIDE GLUCOSE 85 MG/DL (70-105)
[2017-04-20] MEDS: POLYVINYL ALCOHOL OPHTH SOLN 15 ML(LIQUITEARS) OU (21:00)
[2017-04-20] MEDS: RIVAROXABAN 20 MG TAB (XARELTO) PEG (21:28)
[2017-04-20] MEDS: FAMOTIDINE 20 MG TAB PEG (21:28)
[2017-04-20] MEDS: LevoFLOXacin IV 750 MG in APPROPRIATE DILUENT 1 EA IV (21:51)
[2017-04-21 00:15] LABS: BEDSIDE GLUCOSE 124 MG/DL (70-105)
[2017-04-21] MEDS: METOCLOPRAMIDE HCL LIQUID 10 MG/10 ML UDC PEG ×3 (05:30→17:38)
[2017-04-21] MEDS: metroNIDAZOLE 500 MG in APPROPRIATE DILUENT 1 EA IV ×3 (05:30→22:47)
[2017-04-21] MEDS: SUCRALFATE SUSP 1GM/10ML UD PO ×3 (05:30→17:38)
[2017-04-21 06:20] LABS: HEMATOCRIT 40.6 % (42.0-52.0); HEMOGLOBIN 13.8 g/dl (14.0-18.0); MEAN CORPUSCULAR HEMOGLOBIN 30.3 pg (27.0-33.0); MEAN CORPUSCULAR VOLUME 89.2 fl (80.0-96.0); PLATELET COUNT, AUTOMATED 261 10^3/uL (150-450); RED BLOOD COUNT 4.55 10^6/uL (4.30-6.10); RED CELL DISTRIBUTION WIDTH 13.6 % (11.5-14.5)
[2017-04-21 06:33] LABS: BEDSIDE GLUCOSE 119 MG/DL (70-105)
[2017-04-21 06:48] LABS: BASO # 0.1 10^3/uL (0.0-0.2); BASO % 0.8 % (0.0-1.0); EOS # 0.3 10^3/uL (0.0-0.50); EOS % 2.7 % (0.0-3.0); IMMATURE GRANULOCYTE # 0.2 10^3/uL (0-0); LYMPH # 2.5 10^3/uL (1.5-4.5); LYMPH % 22.3 % (24.0-44.0); MONO % 9.2 % (0.0-5.0); NEUTROPHILS # 7.1 10^3/uL (1.8-7.7)
[2017-04-21 06:49] LABS: DIFF SLIDE NUMBER 11
[2017-04-21 06:50] LABS: PLATELET ESTIMATE NORMAL (NORMAL)
[2017-04-21 06:52] LABS: ANION GAP 8 MEQ/L (8-16); BLOOD UREA NITROGEN 14 MG/DL (7-18); CALCIUM LEVEL 8.3 MG/DL (8.5-10.1); CARBON DIOXIDE LEVEL 27 MEQ/L (21-32); CHLORIDE LEVEL 105 MEQ/L (98-107); CREATININE FOR GFR 0.59 MG/DL (0.70-1.30); GLOMERULAR FILTRATION RATE > 60.0 (>60); GLUCOSE, FASTING 116 MG/DL (70-100); MAGNESIUM LEVEL 2.2 MG/DL (1.8-2.4); POTASSIUM SERUM 3.8 MEQ/L (3.5-5.1); SODIUM LEVEL 140 MEQ/L (136-145)
[2017-04-21] MEDS: PANTOPRAZOLE 40MG INJ (PROTONIX) (C9113) IV ×2 (10:04→22:46)
[2017-04-21] MEDS: BACLOFEN 10 MG TAB PEG ×3 (10:04→22:46)
[2017-04-21] MEDS: ASPIRIN 81 MG CHEW TABLET PEG (10:04)
[2017-04-21] MEDS: levETIRAcetam ORAL SOLUTION 500 MG/5 ML UDC PEG ×2 (10:04→22:45)
[2017-04-21] MEDS: METOPROLOL TART 25 MG TABLET PEG ×2 (10:04→22:44)
[2017-04-21] MEDS: FLUTICASONE PROP 0.05% NASAL SPRAY 16 GM (FLONASE) (10:07)
[2017-04-21 12:03] LABS: BEDSIDE GLUCOSE 129 MG/DL (70-105)
[2017-04-21 18:38] LABS: BEDSIDE GLUCOSE 121 MG/DL (70-105)
[2017-04-21] MEDS: FAMOTIDINE 20 MG TAB PEG (22:43)
[2017-04-21] MEDS: RIVAROXABAN 20 MG TAB (XARELTO) PEG (22:46)
[2017-04-21] MEDS: POLYVINYL ALCOHOL OPHTH SOLN 15 ML(LIQUITEARS) OU (22:47)
[2017-04-21] MEDS: LevoFLOXacin IV 750 MG in APPROPRIATE DILUENT 1 EA IV (22:47)
[2017-04-21 23:51] LABS: BEDSIDE GLUCOSE 138 MG/DL (70-105)
[2017-04-22] MEDS: METOCLOPRAMIDE HCL LIQUID 10 MG/10 ML UDC PEG ×3 (00:13→10:33)
[2017-04-22] MEDS: SUCRALFATE SUSP 1GM/10ML UD PO ×3 (00:13→10:31)
[2017-04-22 05:55] LABS: BEDSIDE GLUCOSE 86 MG/DL (70-105)
[2017-04-22] MEDS: metroNIDAZOLE 500 MG in APPROPRIATE DILUENT 1 EA IV (06:06)
[2017-04-22 07:00] LABS: BEDSIDE GLUCOSE 121 MG/DL (70-105)
[2017-04-22] MEDS: METOPROLOL TART 25 MG TABLET PEG (09:00)
[2017-04-22] MEDS: levETIRAcetam ORAL SOLUTION 500 MG/5 ML UDC PEG (10:33)
[2017-04-22] MEDS: ASPIRIN 81 MG CHEW TABLET PEG (10:34)
[2017-04-22] MEDS: PANTOPRAZOLE 40MG INJ (PROTONIX) (C9113) IV (10:34)
[2017-04-22] MEDS: BACLOFEN 10 MG TAB PEG (10:35)
[2017-04-22] MEDS: FLUTICASONE PROP 0.05% NASAL SPRAY 16 GM (FLONASE) (10:36)
== END 2017-04-22 11:04 | DRG 137 ==
LOC: M PCU 04-13 01:47 → M MSPAV 04-14 15:05 → M ED 15:33 → M MSPAV 04-14 15:18 → M ED INP 22:41
DX: J69.0 Pneumonitis due to inhalation of food and vomit (principal); S06.9X9S Unspecified intracranial injury with loss of consciousness of unspecified duration, sequela; R53.2 Functional quadriplegia; G47.33 Obstructive sleep apnea (adult) (pediatric); R42 Dizziness and giddiness; Z93.1 Gastrostomy status; I95.9 Hypotension, unspecified; Z79.899 Other long term (current) drug therapy; Z79.82 Long term (current) use of aspirin; K21.9 Gastro-esophageal reflux disease without esophagitis; J45.909 Unspecified asthma, uncomplicated; Z88.0 Allergy status to penicillin; Z88.8 Allergy status to other drugs, medicaments and biological substances; D72.829 Elevated white blood cell count, unspecified; I10 Essential (primary) hypertension; E87.6 Hypokalemia; W18.30XS Fall on same level, unspecified, sequela; Y92.009 Unspecified place in unspecified non-institutional (private) residence as the place of occurrence of the external cause

== ENCOUNTER → 2017-05-06 | Outpatient (REF) | payer MEDICAID ==
[2017-05-08 10:14] LABS: LEVETIRACETAM (KEPPRA) 30.7 ug/mL (10.0-40.0)
== END ==
DX: G40.909 Epilepsy, unspecified, not intractable, without status epilepticus (principal)
CPT/HCPCS: 36415

== ENCOUNTER → 2017-05-13 | Outpatient (REF) | payer MEDICAID ==
[2017-05-15 10:18] LABS: LEVETIRACETAM (KEPPRA) 28.1 ug/mL (10.0-40.0)
== END ==
DX: G40.909 Epilepsy, unspecified, not intractable, without status epilepticus (principal)
CPT/HCPCS: 36415

== ENCOUNTER → 2017-05-20 | Outpatient (REF) | payer MEDICAID | DX: G40.909 Epilepsy, unspecified, not intractable, without status epilepticus (principal) | CPT/HCPCS: 36415 ==

== ENCOUNTER → 2017-07-01 | Outpatient (REF) | payer MEDICAID ==
[2017-07-01 09:25] LABS: HEMATOCRIT 45.9 % (42.0-52.0); HEMOGLOBIN 15.8 g/dl (13.5-17.5); MEAN CORPUSCULAR HEMOGLOBIN 30.8 pg (27.0-33.0); MEAN CORPUSCULAR HGB CONC 34.4 g/dl (32.0-36.5); MEAN CORPUSCULAR VOLUME 89.5 fl (80.0-96.0); PLATELET COUNT, AUTOMATED 234 10^3/uL (150-450); RED BLOOD COUNT 5.13 10^6/uL (4.30-6.10); RED CELL DISTRIBUTION WIDTH 12.5 % (11.5-14.5); WHITE BLOOD COUNT 8.2 10^3/uL (4.0-10.0)
[2017-07-01 09:56] LABS: ALBUMIN 3.6 GM/DL (3.2-5.2); ALBUMIN/GLOBULIN RATIO 1.13 (1.00-1.93); ALKALINE PHOSPHATASE 83 U/L (45-117); ALT/SGPT 33 U/L (12-78); ANION GAP 7 MEQ/L (8-16); AST/SGOT 16 U/L (7-37); BILIRUBIN,TOTAL 0.4 MG/DL (0.2-1.0); BLOOD UREA NITROGEN 16 MG/DL (7-18); CALCIUM LEVEL 9.1 MG/DL (8.5-10.1); CARBON DIOXIDE LEVEL 28 MEQ/L (21-32); CHLORIDE LEVEL 105 MEQ/L (98-107); CREATININE FOR GFR 0.57 MG/DL (0.70-1.30); GLOMERULAR FILTRATION RATE > 60.0 (>60); GLUCOSE, FASTING 74 MG/DL (70-100); POTASSIUM SERUM 4.2 MEQ/L (3.5-5.1); SODIUM LEVEL 140 MEQ/L (136-145); TOTAL PROTEIN 6.8 GM/DL (6.4-8.2); VALPROIC ACID (DEPAKOTE) 4.7 UG/ML (50.0-100.0)
== END ==
DX: G40.909 Epilepsy, unspecified, not intractable, without status epilepticus (principal)
CPT/HCPCS: 80164

== ENCOUNTER → 2017-08-05 | Outpatient (REF) | payer MEDICAID ==
[2017-08-07 14:16] LABS: LEVETIRACETAM (KEPPRA) 29.5 ug/mL (10.0-40.0)
== END ==
DX: G40.909 Epilepsy, unspecified, not intractable, without status epilepticus (principal)
CPT/HCPCS: 36415

== ENCOUNTER → 2017-09-02 | Outpatient (REF) | payer MEDICAID ==
[2017-09-05 00:12] LABS: LEVETIRACETAM (KEPPRA) 25.4 ug/mL (10.0-40.0)
== END ==
DX: G40.909 Epilepsy, unspecified, not intractable, without status epilepticus (principal)
CPT/HCPCS: 36415

== ENCOUNTER → 2017-10-07 | Outpatient (REF) | payer MEDICAID ==
[2017-10-07 09:53] LABS: HEMOGLOBIN 16.4 g/dl (13.5-17.5); MEAN CORPUSCULAR HEMOGLOBIN 31.1 pg (27.0-33.0); MEAN CORPUSCULAR HGB CONC 34.2 g/dl (32.0-36.5); MEAN CORPUSCULAR VOLUME 91.1 fl (80.0-96.0); PLATELET COUNT, AUTOMATED 269 10^3/uL (150-450); RED BLOOD COUNT 5.27 10^6/uL (4.30-6.10); RED CELL DISTRIBUTION WIDTH 12.5 % (11.5-14.5); WHITE BLOOD COUNT 8.9 10^3/uL (4.0-10.0)
[2017-10-07 10:23] LABS: ALBUMIN 3.7 GM/DL (3.2-5.2); ALBUMIN/GLOBULIN RATIO 1.09 (1.00-1.93); ALKALINE PHOSPHATASE 89 U/L (45-117); ALT/SGPT 38 U/L (12-78); ANION GAP 9 MEQ/L (8-16); AST/SGOT 17 U/L (7-37); BILIRUBIN,TOTAL 0.4 MG/DL (0.2-1.0); BLOOD UREA NITROGEN 16 MG/DL (7-18); CALCIUM LEVEL 9.2 MG/DL (8.5-10.1); CARBON DIOXIDE LEVEL 27 MEQ/L (21-32); CHLORIDE LEVEL 103 MEQ/L (98-107); CREATININE FOR GFR 0.61 MG/DL (0.70-1.30); GLOMERULAR FILTRATION RATE > 60.0 (>60); GLUCOSE, FASTING 77 MG/DL (70-100); POTASSIUM SERUM 4.3 MEQ/L (3.5-5.1); SODIUM LEVEL 139 MEQ/L (136-145); TOTAL PROTEIN 7.1 GM/DL (6.4-8.2)
[2017-10-09 14:16] LABS: LEVETIRACETAM (KEPPRA) 27.1 ug/mL (10.0-40.0)
== END ==
DX: E83.42 Hypomagnesemia (principal); E87.6 Hypokalemia; G40.909 Epilepsy, unspecified, not intractable, without status epilepticus; Z51.81 Encounter for therapeutic drug level monitoring; Z79.899 Other long term (current) drug therapy; I10 Essential (primary) hypertension; Z93.1 Gastrostomy status
CPT/HCPCS: 80053

== ENCOUNTER → 2017-10-30 | Outpatient (REF) | payer MEDICAID ==
[2017-10-30 15:03] LABS: HEMATOCRIT 48.6 % (42.0-52.0); HEMOGLOBIN 16.4 g/dl (13.5-17.5); MEAN CORPUSCULAR HEMOGLOBIN 30.9 pg (27.0-33.0); MEAN CORPUSCULAR HGB CONC 33.7 g/dl (32.0-36.5); MEAN CORPUSCULAR VOLUME 91.5 fl (80.0-96.0); PLATELET COUNT, AUTOMATED 258 10^3/uL (150-450); RED BLOOD COUNT 5.31 10^6/uL (4.30-6.10); RED CELL DISTRIBUTION WIDTH 12.2 % (11.5-14.5); WHITE BLOOD COUNT 19.9 10^3/uL (4.0-10.0)
[2017-10-30 15:08] LABS: ANION GAP 14 MEQ/L (8-16); BLOOD UREA NITROGEN 17 MG/DL (7-18); CALCIUM LEVEL 9.5 MG/DL (8.5-10.1); CARBON DIOXIDE LEVEL 23 MEQ/L (21-32); CHLORIDE LEVEL 104 MEQ/L (98-107); CREATININE FOR GFR 0.78 MG/DL (0.70-1.30); GLOMERULAR FILTRATION RATE > 60.0 (>60); GLUCOSE, FASTING 125 MG/DL (70-100); POTASSIUM SERUM 4.4 MEQ/L (3.5-5.1); SODIUM LEVEL 141 MEQ/L (136-145)
== END ==
DX: R11.10 Vomiting, unspecified (principal)
CPT/HCPCS: 80048

== ENCOUNTER → 2017-12-02 | Outpatient (REF) | payer MEDICAID | DX: G40.909 Epilepsy, unspecified, not intractable, without status epilepticus (principal) | CPT/HCPCS: 36415 ==

== ENCOUNTER → 2018-01-06 | Outpatient (REF) | payer MEDICAID ==
[2018-01-06 11:59] LABS: HEMATOCRIT 47.7 % (42.0-52.0); HEMOGLOBIN 16.1 g/dl (13.5-17.5); MEAN CORPUSCULAR HEMOGLOBIN 30.4 pg (27.0-33.0); MEAN CORPUSCULAR HGB CONC 33.8 g/dl (32.0-36.5); MEAN CORPUSCULAR VOLUME 90.2 fl (80.0-96.0); PLATELET COUNT, AUTOMATED 241 10^3/uL (150-450); RED BLOOD COUNT 5.29 10^6/uL (4.30-6.10); RED CELL DISTRIBUTION WIDTH 12.4 % (11.5-14.5); WHITE BLOOD COUNT 8.8 10^3/uL (4.0-10.0)
[2018-01-06 12:34] LABS: ALBUMIN/GLOBULIN RATIO 1.29 (1.00-1.93); ALKALINE PHOSPHATASE 79 U/L (45-117); ALT/SGPT 38 U/L (12-78); ANION GAP 11 MEQ/L (8-16); AST/SGOT 15 U/L (7-37); BILIRUBIN,TOTAL 0.6 MG/DL (0.2-1.0); BLOOD UREA NITROGEN 13 MG/DL (7-18); CALCIUM LEVEL 9.6 MG/DL (8.5-10.1); CARBON DIOXIDE LEVEL 27 MEQ/L (21-32); CHLORIDE LEVEL 102 MEQ/L (98-107); CREATININE FOR GFR 0.66 MG/DL (0.70-1.30); GLOMERULAR FILTRATION RATE > 60.0 (>60); GLUCOSE, FASTING 73 MG/DL (70-100); SODIUM LEVEL 140 MEQ/L (136-145); TOTAL PROTEIN 7.1 GM/DL (6.4-8.2)
[2018-01-08 14:22] LABS: LEVETIRACETAM (KEPPRA) 9.2 ug/mL (10.0-40.0)
== END ==
DX: Z93.1 Gastrostomy status (principal); Z79.899 Other long term (current) drug therapy
CPT/HCPCS: 80053

== ENCOUNTER → 2018-02-03 | Outpatient (REF) | payer MEDICAID ==
[2018-02-05 14:24] LABS: LEVETIRACETAM (KEPPRA) 27.2 ug/mL (10.0-40.0)
== END ==
DX: G40.909 Epilepsy, unspecified, not intractable, without status epilepticus (principal); Z79.899 Other long term (current) drug therapy
CPT/HCPCS: 36415

== ENCOUNTER → 2018-02-09 | Outpatient (REF) | payer MEDICAID ==
[2018-02-09 12:25] LABS: HEMATOCRIT 51.6 % (42.0-52.0); HEMOGLOBIN 17.6 g/dl (13.5-17.5); MEAN CORPUSCULAR HEMOGLOBIN 30.7 pg (27.0-33.0); MEAN CORPUSCULAR HGB CONC 34.1 g/dl (32.0-36.5); MEAN CORPUSCULAR VOLUME 90.1 fl (80.0-96.0); PLATELET COUNT, AUTOMATED 276 10^3/uL (150-450); RED BLOOD COUNT 5.73 10^6/uL (4.30-6.10); RED CELL DISTRIBUTION WIDTH 12.5 % (11.5-14.5); WHITE BLOOD COUNT 11.2 10^3/uL (4.0-10.0)
[2018-02-09 13:04] LABS: ANION GAP 13 MEQ/L (8-16); BLOOD UREA NITROGEN 18 MG/DL (7-18); CALCIUM LEVEL 9.9 MG/DL (8.5-10.1); CARBON DIOXIDE LEVEL 24 MEQ/L (21-32); CHLORIDE LEVEL 104 MEQ/L (98-107); CREATININE FOR GFR 0.71 MG/DL (0.70-1.30); GLOMERULAR FILTRATION RATE > 60.0 (>60); GLUCOSE, FASTING 100 MG/DL (70-100); POTASSIUM SERUM 4.6 MEQ/L (3.5-5.1); SODIUM LEVEL 141 MEQ/L (136-145)
== END ==
DX: K11.20 Sialoadenitis, unspecified (principal)
CPT/HCPCS: 80048

== ENCOUNTER → 2018-03-03 | Outpatient (REF) ==
[~2018-03-03] MED LIST changes: +ACET650S3 PR; -AMLO10TA2 PEG; +AMLO10TA5 PEG; -ENEMENE16 PR; +ENEMENE4 PR; +LEVA750T7 PEG; +METO10ELUD PEG; +METR-201 PEG; +MILK120011 PEG; -MILKSUS PEG; +PEPC1TAB2 PO; +PREV30TA3 PEG; +SENN1SYP PEG; +SENN8.8S7 PEG; +SUCR10SS PEG; +TYLE500T78 PEG
== END ==
PROVIDERS: ATTEND Internal Medicine
DX: G40.909 Epilepsy, unspecified, not intractable, without status epilepticus (principal)

== ENCOUNTER → 2018-04-07 | Outpatient (REF) | payer MEDICAID ==
[2018-04-07 10:03] LABS: HEMATOCRIT 49.3 % (42.0-52.0); HEMOGLOBIN 16.1 g/dl (13.5-17.5); MEAN CORPUSCULAR HEMOGLOBIN 30.6 pg (27.0-33.0); MEAN CORPUSCULAR HGB CONC 32.7 g/dl (32.0-36.5); MEAN CORPUSCULAR VOLUME 93.7 fl (80.0-96.0); PLATELET COUNT, AUTOMATED 240 10^3/uL (150-450); RED BLOOD COUNT 5.26 10^6/uL (4.30-6.10); WHITE BLOOD COUNT 6.9 10^3/uL (4.0-10.0)
[2018-04-07 10:32] LABS: ALBUMIN 3.9 GM/DL (3.2-5.2); ALT/SGPT 34 U/L (12-78); BILIRUBIN,TOTAL 0.7 MG/DL (0.2-1.0); BLOOD UREA NITROGEN 16 MG/DL (7-18); CALCIUM LEVEL 9.3 MG/DL (8.5-10.1); CARBON DIOXIDE LEVEL 27 MEQ/L (21-32); CHLORIDE LEVEL 105 MEQ/L (98-107); GLOMERULAR FILTRATION RATE > 60.0 (>60); GLUCOSE, FASTING 80 MG/DL (70-100); SODIUM LEVEL 140 MEQ/L (136-145); TOTAL PROTEIN 6.8 GM/DL (6.4-8.2)
== END ==
PROVIDERS: ATTEND Internal Medicine
DX: Z93.1 Gastrostomy status (principal)

== ENCOUNTER → 2018-05-05 | Outpatient (REF) | payer MEDICAID | PROVIDERS: ATTEND Internal Medicine | DX: G40.909 Epilepsy, unspecified, not intractable, without status epilepticus (principal) ==

== ENCOUNTER → 2018-06-02 | Outpatient (REF) | payer MEDICAID ==
[~2018-06-02] MED LIST changes: +AMAN50SY PEG; -ASPI81CH PEG; +ASPI81CH49 PEG; +LEVE15SO2 PEG; -LEVE500UDC PEG; -METR-201 PEG; +METR-265 PEG; -PEPC1TAB2 PO; +PEPC40TA12 PO; -[UNRECOGNIZED DRUG - CODE] PEG
== END ==
PROVIDERS: ATTEND Internal Medicine
DX: G40.909 Epilepsy, unspecified, not intractable, without status epilepticus (principal)

== ENCOUNTER → 2018-07-07 | Outpatient (REF) | payer MEDICAID ==
[2018-07-07 09:24] LABS: HEMATOCRIT 49.5 % (42.0-52.0); HEMOGLOBIN 16.6 g/dl (13.5-17.5); MEAN CORPUSCULAR HEMOGLOBIN 30.3 pg (27.0-33.0); MEAN CORPUSCULAR HGB CONC 33.5 g/dl (32.0-36.5); MEAN CORPUSCULAR VOLUME 90.5 fl (80.0-96.0); PLATELET COUNT, AUTOMATED 236 10^3/uL (150-450); RED BLOOD COUNT 5.47 10^6/uL (4.30-6.10)
[2018-07-07 09:56] LABS: ALBUMIN 3.8 GM/DL (3.2-5.2); ALT/SGPT 31 U/L (12-78); BILIRUBIN,TOTAL 0.4 MG/DL (0.2-1.0); BLOOD UREA NITROGEN 14 MG/DL (7-18); CALCIUM LEVEL 9.4 MG/DL (8.5-10.1); CARBON DIOXIDE LEVEL 28 MEQ/L (21-32); CHLORIDE LEVEL 104 MEQ/L (98-107); CREATININE FOR GFR 0.65 MG/DL (0.70-1.30); GLOMERULAR FILTRATION RATE > 60.0 (>56); GLUCOSE, FASTING 111 MG/DL (70-100); SODIUM LEVEL 138 MEQ/L (136-145); TOTAL PROTEIN 6.8 GM/DL (6.4-8.2)
== END ==
PROVIDERS: ATTEND Internal Medicine
DX: Z93.1 Gastrostomy status (principal)

== ENCOUNTER → 2018-08-04 | Outpatient (REF) | payer MEDICAID | PROVIDERS: ATTEND Internal Medicine | DX: G40.909 Epilepsy, unspecified, not intractable, without status epilepticus (principal) ==

== ENCOUNTER → 2018-09-01 | Outpatient (REF) | payer MEDICAID | PROVIDERS: ATTEND Internal Medicine | DX: G40.909 Epilepsy, unspecified, not intractable, without status epilepticus (principal) ==

== ENCOUNTER → 2018-10-06 | Outpatient (REF) | payer MEDICAID ==
[~2018-10-06] MED LIST changes: -ACET32TAB PEG; -ARTI99.0 OU; +ARTIDRO2 OU; +MAPA325T4 PEG
[2018-10-06 09:48] LABS: HEMATOCRIT 49.2 % (42.0-52.0); HEMOGLOBIN 16.6 g/dl (13.5-17.5); MEAN CORPUSCULAR HEMOGLOBIN 30.9 pg (27.0-33.0); MEAN CORPUSCULAR HGB CONC 33.7 g/dl (32.0-36.5); MEAN CORPUSCULAR VOLUME 91.6 fl (80.0-96.0); PLATELET COUNT, AUTOMATED 190 10^3/uL (150-450); RED BLOOD COUNT 5.37 10^6/uL (4.30-6.10); WHITE BLOOD COUNT 7.6 10^3/uL (4.0-10.0)
[2018-10-06 10:23] LABS: ALBUMIN 3.7 GM/DL (3.2-5.2); ALT/SGPT 30 U/L (12-78); BILIRUBIN,TOTAL 0.5 MG/DL (0.2-1.0); BLOOD UREA NITROGEN 11 MG/DL (7-18); CALCIUM LEVEL 9.3 MG/DL (8.5-10.1); CARBON DIOXIDE LEVEL 26 MEQ/L (21-32); CHLORIDE LEVEL 107 MEQ/L (98-107); CREATININE FOR GFR 0.62 MG/DL (0.70-1.30); GLOMERULAR FILTRATION RATE > 60.0 (>56); GLUCOSE, FASTING 73 MG/DL (70-100); POTASSIUM SERUM 4.3 MEQ/L (3.5-5.1); SODIUM LEVEL 141 MEQ/L (136-145); TOTAL PROTEIN 6.8 GM/DL (6.4-8.2)
== END ==
PROVIDERS: ATTEND Internal Medicine
DX: G40.909 Epilepsy, unspecified, not intractable, without status epilepticus (principal)

== ENCOUNTER → 2018-11-03 | Outpatient (REF) | payer MEDICAID | PROVIDERS: ATTEND Internal Medicine | DX: G40.909 Epilepsy, unspecified, not intractable, without status epilepticus (principal) ==

== ENCOUNTER → 2018-12-02 | Outpatient (REF) | payer MEDICARE, MEDICAID | PROVIDERS: ATTEND Internal Medicine | DX: G40.909 Epilepsy, unspecified, not intractable, without status epilepticus (principal) ==

== ENCOUNTER → 2019-01-05 | Outpatient (REF) | payer MEDICARE, MEDICAID ==
[2019-01-05 09:54] LABS: HEMATOCRIT 46.1 % (42.0-52.0); HEMOGLOBIN 15.2 g/dl (13.5-17.5); MEAN CORPUSCULAR HEMOGLOBIN 31.3 pg (27.0-33.0); MEAN CORPUSCULAR VOLUME 94.9 fl (80.0-96.0); PLATELET COUNT, AUTOMATED 210 10^3/uL (150-450); RED BLOOD COUNT 4.86 10^6/uL (4.30-6.10); WHITE BLOOD COUNT 6.8 10^3/uL (4.0-10.0)
[2019-01-05 10:16] LABS: ALBUMIN 3.5 GM/DL (3.2-5.2); ALT/SGPT 32 U/L (12-78); BILIRUBIN,TOTAL 0.3 MG/DL (0.2-1.0); BLOOD UREA NITROGEN 12 MG/DL (7-18); CALCIUM LEVEL 9.4 MG/DL (8.5-10.1); CARBON DIOXIDE LEVEL 27 MEQ/L (21-32); CHLORIDE LEVEL 105 MEQ/L (98-107); CREATININE FOR GFR 0.57 MG/DL (0.70-1.30); GLOMERULAR FILTRATION RATE > 60.0 (>56); GLUCOSE, FASTING 78 MG/DL (70-100); SODIUM LEVEL 140 MEQ/L (136-145); TOTAL PROTEIN 6.5 GM/DL (6.4-8.2)
== END ==
PROVIDERS: ATTEND Internal Medicine
DX: R56.9 Unspecified convulsions (principal); I10 Essential (primary) hypertension

== ENCOUNTER → 2019-06-07 | Outpatient (REF) | payer MEDICARE, MEDICAID ==
[~2019-06-07] MED LIST changes: +ACET325T43 PEG; -ARTIDRO2 OU; -MAPA325T4 PEG; -MONT10TA2 PEG; +MONT10TA4 PEG; +POLYOPD OU; -SUCR10SS PEG; +SUCR1ORA2 PEG
== END ==
PROVIDERS: ATTEND Internal Medicine
DX: G40.909 Epilepsy, unspecified, not intractable, without status epilepticus (principal)

== ENCOUNTER → 2019-07-05 | Outpatient (REF) | payer MEDICARE, MEDICAID ==
[~2019-07-05] MED LIST changes: -MAPA325T2 PEG; +MAPA325T8 PEG
[2019-07-05 10:02] LABS: HEMATOCRIT 50.1 % (42.0-52.0); MEAN CORPUSCULAR HEMOGLOBIN 31.7 pg (27.0-33.0); MEAN CORPUSCULAR HGB CONC 33.9 g/dl (32.0-36.5); MEAN CORPUSCULAR VOLUME 93.5 fl (80.0-96.0); PLATELET COUNT, AUTOMATED 227 10^3/uL (150-450); RED BLOOD COUNT 5.36 10^6/uL (4.30-6.10); WHITE BLOOD COUNT 8.9 10^3/uL (4.0-10.0)
[2019-07-05 10:24] LABS: ALBUMIN 3.7 GM/DL (3.2-5.2); ALT/SGPT 40 U/L (12-78); BILIRUBIN,TOTAL 0.5 MG/DL (0.2-1.0); BLOOD UREA NITROGEN 14 MG/DL (7-18); CALCIUM LEVEL 9.1 MG/DL (8.5-10.1); CARBON DIOXIDE LEVEL 28 MEQ/L (21-32); CHLORIDE LEVEL 103 MEQ/L (98-107); CREATININE FOR GFR 0.56 MG/DL (0.70-1.30); GLOMERULAR FILTRATION RATE > 60.0 (>56); GLUCOSE, FASTING 58 MG/DL (70-100); SODIUM LEVEL 139 MEQ/L (136-145); TOTAL PROTEIN 6.9 GM/DL (6.4-8.2)
== END ==
PROVIDERS: ATTEND Internal Medicine
DX: I10 Essential (primary) hypertension (principal); R56.9 Unspecified convulsions

== ENCOUNTER → 2019-07-13 | Outpatient (REF) ==
[~2019-07-13] MED LIST changes: -AMLO10TA5 PEG; +AMLO1TAB25 PEG; +MONT10TA10 PEG; -MONT10TA4 PEG
== END ==
PROVIDERS: ATTEND Internal Medicine
DX: Z03.818 Encounter for observation for suspected exposure to other biological agents ruled out (principal)

== ENCOUNTER → 2019-10-12 | Outpatient (CLI) | payer MEDICARE, MEDICAID ==
[~2019-10-12] MED LIST changes: -MONT10TA10 PEG; +MONT10TA4 PEG
== END ==
LOC: M RAD 10:38
PROVIDERS: ATTEND Internal Medicine
DX: R22.32 Localized swelling, mass and lump, left upper limb (principal)

== ENCOUNTER → 2019-12-07 | Outpatient (REF) | payer MEDICARE, MEDICAID | PROVIDERS: ATTEND Internal Medicine | DX: G40.909 Epilepsy, unspecified, not intractable, without status epilepticus (principal) ==

== ENCOUNTER → 2020-01-04 | Outpatient (REF) | payer MEDICARE, MEDICAID ==
[2020-01-04 10:44] LABS: HEMATOCRIT 48.3 % (42.0-52.0); HEMOGLOBIN 15.7 g/dl (13.5-17.5); MEAN CORPUSCULAR HGB CONC 32.5 g/dl (32.0-36.5); MEAN CORPUSCULAR VOLUME 92.4 fl (80.0-96.0); PLATELET COUNT, AUTOMATED 207 10^3/uL (150-450); RED BLOOD COUNT 5.23 10^6/uL (4.30-6.10); WHITE BLOOD COUNT 7.5 10^3/uL (4.0-10.0)
[2020-01-04 11:00] LABS: ALBUMIN 3.6 GM/DL (3.2-5.2); ALT/SGPT 28 U/L (12-78); BILIRUBIN,TOTAL 0.5 MG/DL (0.2-1.0); BLOOD UREA NITROGEN 18 MG/DL (7-18); CALCIUM LEVEL 9.2 MG/DL (8.5-10.1); CARBON DIOXIDE LEVEL 27 MEQ/L (21-32); CHLORIDE LEVEL 106 MEQ/L (98-107); CREATININE FOR GFR 0.61 MG/DL (0.70-1.30); GLOMERULAR FILTRATION RATE > 60.0 (>56); GLUCOSE, FASTING 69 MG/DL (70-100); POTASSIUM SERUM 4.1 MEQ/L (3.5-5.1); SODIUM LEVEL 139 MEQ/L (136-145); TOTAL PROTEIN 6.6 GM/DL (6.4-8.2)
== END ==
PROVIDERS: ATTEND Internal Medicine
DX: G40.909 Epilepsy, unspecified, not intractable, without status epilepticus (principal)

== ENCOUNTER → 2020-01-06 | Outpatient (REF) | payer MEDICAID, MEDICARE | PROVIDERS: ATTEND Internal Medicine | DX: Z20.828 Contact with and (suspected) exposure to other viral communicable diseases (principal) ==

== ENCOUNTER → 2020-01-13 | Outpatient (REF) | payer MEDICARE, MEDICAID ==
[~2020-01-13] MED LIST changes: +MONT10TA10 PEG; -MONT10TA4 PEG
== END ==
LOC: EDSTATUS 02-22 06:51
PROVIDERS: ATTEND Internal Medicine
DX: Z20.828 Contact with and (suspected) exposure to other viral communicable diseases (principal)

== ENCOUNTER → 2020-01-19 | Outpatient (REF) | payer MEDICARE, MEDICAID | PROVIDERS: ATTEND Internal Medicine | DX: Z20.828 Contact with and (suspected) exposure to other viral communicable diseases (principal) ==

== ENCOUNTER → 2020-02-06 | Outpatient (REF) | payer MEDICARE, MEDICAID ==
[~2020-02-06] MED LIST changes: -MONT10TA10 PEG; +MONT5TAB2 PEG
== END ==
PROVIDERS: ATTEND Internal Medicine
DX: Z20.828 Contact with and (suspected) exposure to other viral communicable diseases (principal)

== ENCOUNTER → 2020-02-10 | Outpatient (REF) | payer MEDICARE, MEDICAID | PROVIDERS: ATTEND Internal Medicine | DX: Z20.828 Contact with and (suspected) exposure to other viral communicable diseases (principal) ==

== ENCOUNTER → 2020-02-16 | Outpatient (REF) | payer MEDICARE, MEDICAID | PROVIDERS: ATTEND Internal Medicine | DX: Z20.828 Contact with and (suspected) exposure to other viral communicable diseases (principal) ==

== ENCOUNTER → 2020-02-21 | Outpatient (REF) | payer MEDICARE, MEDICAID ==
[2020-02-21 13:49] LABS: RSV AMPLIFICATION NEGATIVE (NEGATIVE)
== END ==
PROVIDERS: ATTEND Internal Medicine
DX: Z20.828 Contact with and (suspected) exposure to other viral communicable diseases (principal)

== ENCOUNTER → 2020-02-28 | Outpatient (REF) | payer MEDICARE, MEDICAID | PROVIDERS: ATTEND Internal Medicine | DX: Z20.828 Contact with and (suspected) exposure to other viral communicable diseases (principal) ==

== ENCOUNTER → 2020-03-03 | Outpatient (REF) | payer MEDICARE, MEDICAID | PROVIDERS: ATTEND Internal Medicine | DX: Z20.828 Contact with and (suspected) exposure to other viral communicable diseases (principal) ==

== ENCOUNTER → 2020-06-02 | Outpatient (REF) | payer MEDICARE, MEDICAID ==
[~2020-06-02] MED LIST changes: +MONT10TA10 PEG; -MONT5TAB2 PEG
[2020-06-02 22:02] LABS: RSV AMPLIFICATION NEGATIVE (NEGATIVE)
== END ==
PROVIDERS: ATTEND Internal Medicine
DX: Z11.52 Encounter for screening for COVID-19 (principal)

== ENCOUNTER → 2020-06-06 | Outpatient (REF) | payer MEDICARE, MEDICAID | PROVIDERS: ATTEND Internal Medicine | DX: R56.9 Unspecified convulsions (principal); I10 Essential (primary) hypertension ==

== ENCOUNTER → 2020-07-04 | Outpatient (REF) | payer MEDICARE, MEDICAID ==
[2020-07-04 10:09] LABS: HEMATOCRIT 50.2 % (42.0-52.0); HEMOGLOBIN 16.7 g/dl (13.5-17.5); MEAN CORPUSCULAR HEMOGLOBIN 31.1 pg (27.0-33.0); MEAN CORPUSCULAR HGB CONC 33.3 g/dl (32.0-36.5); MEAN CORPUSCULAR VOLUME 93.5 fl (80.0-96.0); PLATELET COUNT, AUTOMATED 225 10^3/uL (150-450); RED BLOOD COUNT 5.37 10^6/uL (4.30-6.10); WHITE BLOOD COUNT 7.8 10^3/uL (4.0-10.0)
[2020-07-04 10:40] LABS: ALBUMIN 3.5 GM/DL (3.2-5.2); ALT/SGPT 29 U/L (12-78); BILIRUBIN,TOTAL 0.5 MG/DL (0.2-1.0); BLOOD UREA NITROGEN 20 MG/DL (7-18); CALCIUM LEVEL 9.2 MG/DL (8.5-10.1); CARBON DIOXIDE LEVEL 28 MEQ/L (21-32); CHLORIDE LEVEL 105 MEQ/L (98-107); CREATININE FOR GFR 0.59 MG/DL (0.70-1.30); GLOMERULAR FILTRATION RATE > 60.0 (>56); GLUCOSE, FASTING 63 MG/DL (70-100); POTASSIUM SERUM 4.2 MEQ/L (3.5-5.1); SODIUM LEVEL 138 MEQ/L (136-145); TOTAL PROTEIN 6.8 GM/DL (6.4-8.2)
== END ==
PROVIDERS: ATTEND Internal Medicine
DX: G40.909 Epilepsy, unspecified, not intractable, without status epilepticus (principal); I10 Essential (primary) hypertension; Z79.899 Other long term (current) drug therapy

== ENCOUNTER → 2020-10-03 | Outpatient (REF) | payer OTHER, MEDICAID ==
[2020-10-03 13:48] LABS: HEMATOCRIT 49.8 % (42.0-52.0); HEMOGLOBIN 16.5 g/dl (13.5-17.5); MEAN CORPUSCULAR HEMOGLOBIN 31.1 pg (27.0-33.0); MEAN CORPUSCULAR HGB CONC 33.1 g/dl (32.0-36.5); PLATELET COUNT, AUTOMATED 204 10^3/uL (150-450)
[2020-10-03 13:57] LABS: BLOOD UREA NITROGEN 14 MG/DL (7-18); CALCIUM LEVEL 9.2 MG/DL (8.5-10.1); CARBON DIOXIDE LEVEL 27 MEQ/L (21-32); CHLORIDE LEVEL 102 MEQ/L (98-107); GLOMERULAR FILTRATION RATE > 60.0 (>56); GLUCOSE, FASTING 97 MG/DL (70-100); NT-PRO BNP 16 PG/ML (<125); SODIUM LEVEL 136 MEQ/L (136-145)
== END ==
PROVIDERS: ATTEND Internal Medicine
DX: R06.02 Shortness of breath (principal)

== ENCOUNTER → 2020-10-03 | Outpatient (CLI) | payer OTHER, MEDICAID ==
--- NOTE | 2020-10-03 12:59 | REP ---
INDICATION: WHEEZING. COMPARISON: 04/12/2017 TECHNIQUE: Portable FINDINGS: The technique utilized in obtaining the radiograph has magnified the cardiac silhouette and accentuated the interstitial markings. The patient is tilted and rotated to the left. The patient's chin and neck obscure the left upper lung field. There is motion artifact. No gross abnormal opacities have developed. There is probable mild cardiomegaly accentuated by technique. The imaged osseous structures are within normal limits. IMPRESSION: Findings and limitations as described above. There is no evidence of acute cardiopulmonary disease. <Electronically signed by David Quiñones > 10/03/20 [id number]
== END ==
PROVIDERS: ATTEND Internal Medicine
DX: R06.02 Shortness of breath (principal)

== ENCOUNTER → 2020-11-29 | Outpatient (REF) | payer OTHER, MEDICAID | PROVIDERS: ATTEND Internal Medicine | DX: G40.909 Epilepsy, unspecified, not intractable, without status epilepticus (principal); Z79.899 Other long term (current) drug therapy ==

== ENCOUNTER → 2021-02-28 | Outpatient (REF) | payer OTHER, MEDICAID ==
[~2021-02-28] MED LIST changes: -MONT10TA10 PEG; +MONT10TA97 PEG
[2021-02-28 11:54] LABS: HEMATOCRIT 52.4 % (42.0-52.0); HEMOGLOBIN 17.4 g/dl (13.5-17.5); MEAN CORPUSCULAR HEMOGLOBIN 31.3 pg (27.0-33.0); MEAN CORPUSCULAR HGB CONC 33.2 g/dl (32.0-36.5); MEAN CORPUSCULAR VOLUME 94.2 fl (80.0-96.0); PLATELET COUNT, AUTOMATED 201 10^3/uL (150-450); RED BLOOD COUNT 5.56 10^6/uL (4.30-6.10); WHITE BLOOD COUNT 7.7 10^3/uL (4.0-10.0)
[2021-02-28 12:43] LABS: ALBUMIN 3.6 GM/DL (3.2-5.2); ALT/SGPT 42 U/L (12-78); BILIRUBIN,TOTAL 0.8 MG/DL (0.2-1.0); BLOOD UREA NITROGEN 16 MG/DL (7-18); CALCIUM LEVEL 9.2 MG/DL (8.5-10.1); CARBON DIOXIDE LEVEL 24 MEQ/L (21-32); CHLORIDE LEVEL 104 MEQ/L (98-107); CREATININE FOR GFR 0.79 MG/DL (0.70-1.30); GLOMERULAR FILTRATION RATE > 60.0 (>56); GLUCOSE, FASTING 131 MG/DL (70-100); POTASSIUM SERUM 4.1 MEQ/L (3.5-5.1); SODIUM LEVEL 138 MEQ/L (136-145); TOTAL PROTEIN 6.7 GM/DL (6.4-8.2)
== END ==
PROVIDERS: ATTEND Internal Medicine
DX: I10 Essential (primary) hypertension (principal)

== ENCOUNTER → 2021-09-10 | Outpatient (REF) | payer OTHER, MEDICAID ==
[~2021-09-10] MED LIST changes: +ALBU2.5V10 INH; -ALBU83IN INH
[2021-09-10 11:14] LABS: HEMATOCRIT 47.2 % (42.0-52.0); HEMOGLOBIN 16.1 g/dl (13.5-17.5); MEAN CORPUSCULAR HEMOGLOBIN 31.4 pg (27.0-33.0); MEAN CORPUSCULAR HGB CONC 34.1 g/dl (32.0-36.5); PLATELET COUNT, AUTOMATED 205 10^3/uL (150-450); RED BLOOD COUNT 5.13 10^6/uL (4.30-6.10); WHITE BLOOD COUNT 7.4 10^3/uL (4.0-10.0)
[2021-09-10 11:58] LABS: ALBUMIN 3.5 GM/DL (3.2-5.2); ALT/SGPT 24 U/L (12-78); BILIRUBIN,TOTAL 0.5 MG/DL (0.2-1.0); BLOOD UREA NITROGEN 13 MG/DL (7-18); CARBON DIOXIDE LEVEL 26 MEQ/L (21-32); CHLORIDE LEVEL 105 MEQ/L (98-107); CREATININE FOR GFR 0.59 MG/DL (0.70-1.30); GLOMERULAR FILTRATION RATE > 60.0 (>56); GLUCOSE, FASTING 66 MG/DL (70-100); POTASSIUM SERUM 4.1 MEQ/L (3.5-5.1); SODIUM LEVEL 138 MEQ/L (136-145); TOTAL PROTEIN 6.4 GM/DL (6.4-8.2)
== END ==
PROVIDERS: ATTEND Internal Medicine
DX: I10 Essential (primary) hypertension (principal); Z79.899 Other long term (current) drug therapy

== ENCOUNTER 2021-09-18 12:17 | Emergency (ER) | payer OTHER, MEDICAID ==
[~2021-09-18] VITALS: Ht 172.7 cm; Wt 90.9 kg
[2021-09-18 14:11] LABS: BASO # 0.1 10^3/uL (0.0-0.2); BASO % 0.7 % (0.0-1.0); EOS # 0.1 10^3/uL (0.0-0.5); EOS % 1.7 % (0.0-3.0); HEMATOCRIT 51.6 % (42.0-52.0); HEMOGLOBIN 17.3 g/dl (13.5-17.5); LYMPH # 2.2 10^3/uL (1.5-5.0); LYMPH % 28.9 % (24.0-44.0); MEAN CORPUSCULAR HGB CONC 33.5 g/dl (32.0-36.5); MEAN CORPUSCULAR VOLUME 92.5 fl (80.0-96.0); MONO # 0.6 10^3/uL (0.0-0.8); MONO % 8.4 % (2.0-8.0); NEUTROPHILS # 4.6 10^3/uL (1.5-8.5); NEUTROPHILS % 59.8 % (36.0-66.0); PLATELET COUNT, AUTOMATED 221 10^3/uL (150-450); RED BLOOD COUNT 5.58 10^6/uL (4.30-6.10); WHITE BLOOD COUNT 7.7 10^3/uL (4.0-10.0)
[2021-09-18 14:45] LABS: ALBUMIN 3.9 GM/DL (3.2-5.2); ALT/SGPT 29 U/L (12-78); BILIRUBIN,DIRECT 0.2 MG/DL (0.0-0.2); BILIRUBIN,TOTAL 0.7 MG/DL (0.2-1.0); BLOOD UREA NITROGEN 15 MG/DL (7-18); CALCIUM LEVEL 9.6 MG/DL (8.5-10.1); CARBON DIOXIDE LEVEL 27 MEQ/L (21-32); CHLORIDE LEVEL 103 MEQ/L (98-107); CREATININE FOR GFR 0.68 MG/DL (0.70-1.30); GLOMERULAR FILTRATION RATE > 60.0 (>56); GLUCOSE, FASTING 88 MG/DL (70-100); POTASSIUM SERUM 4.7 MEQ/L (3.5-5.1); SODIUM LEVEL 138 MEQ/L (136-145); TOTAL PROTEIN 6.9 GM/DL (6.4-8.2)
[2021-09-18] MEDS ORDERED: NS 1,000 ML IV ONE (14:50)
[2021-09-18] MEDS ORDERED: LIDOCAINE 2% 5ML JELLY UROJET TOP ONE (14:50)
[2021-09-18 21:01] VITALS: BP 166/86
== END 2021-09-18 23:09 | disposition home or self-care (01) ==
LOC: M ED 12:17
DX: R53.83 Other fatigue (principal); K21.9 Gastro-esophageal reflux disease without esophagitis; N40.0 Benign prostatic hyperplasia without lower urinary tract symptoms; G82.50 Quadriplegia, unspecified; Z88.0 Allergy status to penicillin; Z88.8 Allergy status to other drugs, medicaments and biological substances; Z79.899 Other long term (current) drug therapy; Z79.82 Long term (current) use of aspirin

== ENCOUNTER 2021-10-30 11:47 | Emergency (ER) | payer OTHER, MEDICAID ==
[2021-10-30 13:14] LABS: BASO # 0.1 10^3/uL (0.0-0.2); BASO % 0.5 % (0.0-1.0); EOS # 0.3 10^3/uL (0.0-0.5); EOS % 2.4 % (0.0-3.0); HEMATOCRIT 33.7 % (42.0-52.0); HEMOGLOBIN 11.1 g/dl (13.5-17.5); LYMPH # 1.9 10^3/uL (1.5-5.0); LYMPH % 15.5 % (24.0-44.0); MEAN CORPUSCULAR HEMOGLOBIN 31.4 pg (27.0-33.0); MEAN CORPUSCULAR HGB CONC 32.9 g/dl (32.0-36.5); MEAN CORPUSCULAR VOLUME 95.2 fl (80.0-96.0); MONO # 1.1 10^3/uL (0.0-0.8); MONO % 8.7 % (2.0-8.0); NEUTROPHILS % 72.3 % (36.0-66.0); PLATELET COUNT, AUTOMATED 335 10^3/uL (150-450); RED BLOOD COUNT 3.54 10^6/uL (4.30-6.10); WHITE BLOOD COUNT 12.5 10^3/uL (4.0-10.0)
[2021-10-30 13:31] LABS: INR 0.96; PARTIAL THROMBOPLASTIN TIME 33.1 SECONDS (25.9-37.0); PROTHROMBIN TIME 13.2 SECONDS (12.7-14.5)
[2021-10-30 13:34] LABS: ALBUMIN 2.9 GM/DL (3.2-5.2); ALT/SGPT 40 U/L (12-78); BILIRUBIN,TOTAL 1.2 MG/DL (0.2-1.0); BLOOD UREA NITROGEN 22 MG/DL (7-18); CALCIUM LEVEL 8.9 MG/DL (8.5-10.1); CARBON DIOXIDE LEVEL 27 MEQ/L (21-32); CHLORIDE LEVEL 104 MEQ/L (98-107); CREATININE FOR GFR 0.44 MG/DL (0.70-1.30); GLOMERULAR FILTRATION RATE > 60.0 (>56); GLUCOSE, FASTING 93 MG/DL (70-100); POTASSIUM SERUM 4.3 MEQ/L (3.5-5.1); SODIUM LEVEL 135 MEQ/L (136-145); TOTAL PROTEIN 6.1 GM/DL (6.4-8.2)
[2021-10-30 16:00] VITALS: BP 168/78
== END 2021-10-30 16:21 | disposition home or self-care (01) ==
LOC: M ED 11:47
DX: S20.211A Contusion of right front wall of thorax, initial encounter (principal); S42.471A Displaced transcondylar fracture of right humerus, initial encounter for closed fracture; G40.89 Other seizures; Z93.1 Gastrostomy status; Z88.0 Allergy status to penicillin; Z88.8 Allergy status to other drugs, medicaments and biological substances; Y92.129 Unspecified place in nursing home as the place of occurrence of the external cause; Y93.9 Activity, unspecified; Y99.9 Unspecified external cause status; Z79.51 Long term (current) use of inhaled steroids; Z79.899 Other long term (current) drug therapy

== ENCOUNTER → 2021-11-12 | Outpatient (CLI) | payer OTHER, MEDICAID | LOC: M SOG 11:46 | PROVIDERS: ATTEND Orthopaedic Surgery Adult Reconstructive Orthopaedic Surgery | DX: M25.521 Pain in right elbow (principal) ==

== ENCOUNTER → 2022-02-11 | Outpatient (REF) | payer OTHER, MEDICAID | PROVIDERS: ATTEND Nurse Practitioner Family | DX: R05.9 Cough, unspecified (principal) ==

== ENCOUNTER → 2022-03-06 | Outpatient (REF) | payer OTHER, MEDICAID ==
[2022-03-06 11:22] LABS: HEMATOCRIT 48.2 % (42.0-52.0); HEMOGLOBIN 16.2 g/dl (13.5-17.5); MEAN CORPUSCULAR HEMOGLOBIN 30.7 pg (27.0-33.0); MEAN CORPUSCULAR HGB CONC 33.6 g/dl (32.0-36.5); MEAN CORPUSCULAR VOLUME 91.5 fl (80.0-96.0); PLATELET COUNT, AUTOMATED 215 10^3/uL (150-450); RED BLOOD COUNT 5.27 10^6/uL (4.30-6.10); WHITE BLOOD COUNT 9.8 10^3/uL (4.0-10.0)
[2022-03-06 12:02] LABS: ALBUMIN 3.7 G/DL (3.2-5.2); ALKALINE PHOSPHATASE 77 U/L (46-116); ALT/SGPT 24 U/L (7.0-40); AST/SGOT 20 U/L (<34); BILIRUBIN,TOTAL 0.8 MG/DL (0.3-1.2); BLOOD UREA NITROGEN 14 MG/DL (9-23); CALCIUM LEVEL 9.1 MG/DL (8.5-10.1); CARBON DIOXIDE LEVEL 26 MMOL/L (20-31); CHLORIDE LEVEL 99 MMOL/L (98-107); CREATININE FOR GFR 0.52 MG/DL (0.70-1.30); GLOMERULAR FILTRATION RATE > 60.0 (>56); GLUCOSE, FASTING 70 MG/DL (60-100); SODIUM LEVEL 134 MMOL/L (136-145); TOTAL PROTEIN 6.6 G/DL (5.7-8.2)
== END ==
PROVIDERS: ATTEND Physician Assistant
DX: G40.89 Other seizures (principal); I10 Essential (primary) hypertension

== ENCOUNTER → 2022-09-06 | Outpatient (REF) | payer MEDICARE ==
[~2022-09-06] MED LIST changes: +ARTIDRO4 OU; -POLYOPD OU
[2022-09-06 08:32] LABS: HEMATOCRIT 49.5 % (42.0-52.0); HEMOGLOBIN 16.6 g/dl (13.5-17.5); MEAN CORPUSCULAR HEMOGLOBIN 31.1 pg (27.0-33.0); MEAN CORPUSCULAR HGB CONC 33.5 g/dl (32.0-36.5); MEAN CORPUSCULAR VOLUME 92.9 fl (80.0-96.0); PLATELET COUNT, AUTOMATED 214 10^3/uL (150-450); RED BLOOD COUNT 5.33 10^6/uL (4.30-6.10); WHITE BLOOD COUNT 8.9 10^3/uL (4.0-10.0)
[2022-09-06 08:56] LABS: BLOOD UREA NITROGEN 13 MG/DL (9-23); CALCIUM LEVEL 9.4 MG/DL (8.5-10.1); CARBON DIOXIDE LEVEL 26 MMOL/L (20-31); CHLORIDE LEVEL 101 MMOL/L (98-107); CHOLESTEROL LEVEL 136 MG/DL (<200); CHOLESTEROL RISK RATIO 4.59 (<5); CREATININE FOR GFR 0.48 MG/DL (0.70-1.30); GLOMERULAR FILTRATION RATE > 60.0 (>56); GLUCOSE, FASTING 75 MG/DL (60-100); HDL CHOLESTEROL 29.6 MG/DL (>40); NON-HDL-C 106.4 MG/DL; POTASSIUM SERUM 4.3 MMOL/L (3.5-5.1); SODIUM LEVEL 133 MMOL/L (136-145); TRIGLYCERIDES LEVEL 415 MG/DL (<150)
== END ==
PROVIDERS: ATTEND Internal Medicine
DX: I10 Essential (primary) hypertension (principal)

== ENCOUNTER → 2023-03-14 | Outpatient (REF) | payer MEDICARE ==
[~2023-03-14] MED LIST changes: +HYDR-161 PEG; -HYDR10TAB PEG
[2023-03-14 11:33] LABS: HEMATOCRIT 47.1 % (42.0-52.0); MEAN CORPUSCULAR HEMOGLOBIN 31.3 pg (27.0-33.0); PLATELET COUNT, AUTOMATED 208 10^3/uL (150-450); RED BLOOD COUNT 5.12 10^6/uL (4.30-6.10); WHITE BLOOD COUNT 7.9 10^3/uL (4.0-10.0)
[2023-03-14 12:01] LABS: ALBUMIN 3.4 G/DL (3.2-5.2); ALKALINE PHOSPHATASE 67 U/L (46-116); ALT/SGPT 20 U/L (7.0-40); AST/SGOT 14 U/L (<34); BILIRUBIN,TOTAL 0.6 MG/DL (0.3-1.2); BLOOD UREA NITROGEN 15 MG/DL (9-23); CALCIUM LEVEL 8.7 MG/DL (8.5-10.1); CARBON DIOXIDE LEVEL 26 MMOL/L (20-31); CHLORIDE LEVEL 100 MMOL/L (98-107); CREATININE FOR GFR 0.46 MG/DL (0.70-1.30); GLOMERULAR FILTRATION RATE > 60.0 (>56); GLUCOSE, FASTING 130 MG/DL (60-100); SODIUM LEVEL 133 MMOL/L (136-145); TOTAL PROTEIN 6.3 G/DL (5.7-8.2)
== END ==
PROVIDERS: ATTEND Internal Medicine
DX: G40.909 Epilepsy, unspecified, not intractable, without status epilepticus (principal)

== ENCOUNTER → 2023-03-24 | Outpatient (REF) | payer MEDICARE | PROVIDERS: ATTEND Internal Medicine | DX: E03.9 Hypothyroidism, unspecified (principal) ==

== ENCOUNTER 2023-07-15 15:55 | Inpatient (IN) | payer MEDICARE ==
[~2023-07-15] VITALS: Ht 180.3 cm; Wt 99.1 kg
[~2023-07-15 15:55] MED LIST changes: +LEVE15SO GT; -PROC25SU24 PR; +PROC25SU27 PR
[2023-07-15 17:07] LABS: BASO # 0.1 10^3/uL (0.0-0.2); BASO % 0.3 % (0.0-1.0); EOS % 0.1 % (0.0-3.0); HEMATOCRIT 47.5 % (42.0-52.0); HEMOGLOBIN 16.4 g/dl (13.5-17.5); LYMPH # 1.3 10^3/uL (1.5-5.0); LYMPH % 6.9 % (24.0-44.0); MEAN CORPUSCULAR HEMOGLOBIN 31.8 pg (27.0-33.0); MEAN CORPUSCULAR HGB CONC 34.5 g/dl (32.0-36.5); MEAN CORPUSCULAR VOLUME 92.1 fl (80.0-96.0); MONO # 1.1 10^3/uL (0.0-0.8); MONO % 5.6 % (2.0-8.0); NEUTROPHILS # 16.6 10^3/uL (1.5-8.5); NEUTROPHILS % 86.4 % (36.0-66.0); PLATELET COUNT, AUTOMATED 248 10^3/uL (150-450); RED BLOOD COUNT 5.16 10^6/uL (4.30-6.10); WHITE BLOOD COUNT 19.2 10^3/uL (4.0-10.0)
[2023-07-15 17:26] LABS: PROTHROMBIN TIME 12.9 SECONDS (12.5-14.5)
[2023-07-15 17:37] LABS: BLOOD UREA NITROGEN 15 MG/DL (9-23); CALCIUM LEVEL 9.3 MG/DL (8.5-10.1); CARBON DIOXIDE LEVEL 26 MMOL/L (20-31); CHLORIDE LEVEL 102 MMOL/L (98-107); CREATININE FOR GFR 0.47 MG/DL (0.70-1.30); GLOMERULAR FILTRATION RATE > 60.0 (>56); GLUCOSE, FASTING 124 MG/DL (60-100); POTASSIUM SERUM 5.2 MMOL/L (3.5-5.1); SODIUM LEVEL 134 MMOL/L (136-145)
[2023-07-15] MEDS: NS 2,920 ML in IV 1 EA IV ONE (18:28)
[2023-07-15 18:30] LABS: ALBUMIN 3.6 G/DL (3.2-5.2); ALKALINE PHOSPHATASE 68 U/L (46-116); ALT/SGPT 26 U/L (7.0-40); AST/SGOT 18 U/L (<34); BILIRUBIN,DIRECT 0.2 MG/DL (<0.4); BILIRUBIN,TOTAL 0.8 MG/DL (0.3-1.2); TOTAL PROTEIN 6.6 G/DL (5.7-8.2)
[2023-07-15] MEDS: LevoFLOXacin IV 750 MG in IV 1 EA IV ONE (18:48)
[2023-07-15] MEDS: NS 1,000 ML IV ONE (22:35)
[2023-07-15 22:41] LABS: MEAN CORPUSCULAR HEMOGLOBIN 31.9 pg (27.0-33.0); MEAN CORPUSCULAR VOLUME 93.9 fl (80.0-96.0); PLATELET COUNT, AUTOMATED 215 10^3/uL (150-450); RED BLOOD COUNT 4.42 10^6/uL (4.30-6.10); WHITE BLOOD COUNT 16.5 10^3/uL (4.0-10.0)
[2023-07-15 22:50] LABS: HEMOGLOBIN 14.1 g/dl (13.5-17.5)
[2023-07-15 22:51] LABS: HEMATOCRIT 41.5 % (42.0-52.0)
[2023-07-16] VITALS (15 sets, daily range): BP systolic 114–181; BP diastolic 66–97; TEMP 98–100; O2SAT 92–97
[2023-07-16] MEDS ORDERED: ISOVUE-370 76% 100ML VIAL As Ordered ONE (01:30)
[2023-07-16] MEDS ORDERED: OSMOLIQ GT (02:47)
[2023-07-16] MEDS ORDERED: VASEGEL6 TOP (02:47)
[2023-07-16] MEDS ORDERED: SENN8.6T28 GT (02:47)
[2023-07-16] MEDS ORDERED: EYEL1MED TOP (02:47)
[2023-07-16] MEDS ORDERED: DIFL200T GT (02:47)
[2023-07-16] MEDS ORDERED: OMEP-173 GT (02:47)
[2023-07-16] MEDS ORDERED: CVS2POW3 EXT (02:47)
[2023-07-16] MEDS ORDERED: GNPSOL OU (02:47)
[2023-07-16] MEDS ORDERED: CHLO0.124 PO (02:47)
[2023-07-16] MEDS ORDERED: [UNRECOGNIZED DRUG - OTHER] EXT (02:47)
[2023-07-16] MEDS ORDERED: METO25TA4 GT (02:47)
[2023-07-16] MEDS ORDERED: ACET-897 GT (02:47)
[2023-07-16] MEDS ORDERED: MILKSUS3 GT ×2 (02:47)
[2023-07-16] MEDS ORDERED: XARE10TA PO (02:47)
[2023-07-16] MEDS ORDERED: NYST1POW9 TOP (02:47)
[2023-07-16] MEDS ORDERED: HOME MED LIST COMPLETE! XX SCH (02:50)
[2023-07-16] MEDS ORDERED: BISACODYL 10MG SUPP PR PRN (03:45)
[2023-07-16] MEDS ORDERED: FLEET ENEMA PR PRN (03:45)
[2023-07-16] MEDS ORDERED: MOM 30ML SUSPENSION UDC GT PRN (03:45)
[2023-07-16] MEDS ORDERED: MOM 30ML SUSPENSION UDC GT SCH (03:45)
[2023-07-16] MEDS: NS 1,000 ML IV SCH (05:34)
[2023-07-16] MEDS: MORPHINE 4 MG/ML 1ML VIAL IV ONE (07:03)
[2023-07-16] MEDS ORDERED: ACETAMINOPHEN 500 MG TAB GT SCH (09:00)
[2023-07-16] MEDS ORDERED: [UNRECOGNIZED DRUG - OTHER] TOP SCH (09:00)
[2023-07-16] MEDS ORDERED: OCUSOFT LID SCRUB TOP SCH (09:00)
[2023-07-16] MEDS ORDERED: **hydrALAZINE** 10 MG TAB GT SCH (09:00)
[2023-07-16] MEDS: ACETAMINOPHEN *IV* 1,000 MG in IV 1 EA IV ONE (09:34)
[2023-07-16] MEDS: METOPROLOL TART 25 MG TABLET GT SCH (09:36)
[2023-07-16] MEDS: CHLORHEXIDINE GLUCONATE 0.12 % 15ML UDC (PERIDEX ORAL RINSE) SSP SCH (09:36)
[2023-07-16] MEDS: levETIRAcetam ORAL SOLUTION 500MG/5ML UDC GT SCH ×2 (09:37→21:36)
[2023-07-16] MEDS: **hydrALAZINE** 10 MG TAB GT SCH (09:37)
[2023-07-16] MEDS: SENNA 8.6 MG TAB (SENOKOT) GT SCH (09:37)
[2023-07-16] MEDS: fentaNYL 100 MCG/2 ML INJECTION IV PRN (09:38)
[2023-07-16] MEDS: NYSTATIN 100,000 UNITS/GM TOPICAL PWD 15GM TOP SCH (09:39)
[2023-07-16] MEDS: MICONAZOLE 2 % POWDER (DESENEX) EXT SCH (09:39)
[2023-07-16 10:14] LABS: BLOOD UREA NITROGEN 13 MG/DL (9-23); CALCIUM LEVEL 8.2 MG/DL (8.5-10.1); CARBON DIOXIDE LEVEL 26 MMOL/L (20-31); CHLORIDE LEVEL 106 MMOL/L (98-107); CREATININE FOR GFR 0.52 MG/DL (0.70-1.30); GLOMERULAR FILTRATION RATE > 60.0 (>56); GLUCOSE, FASTING 98 MG/DL (60-100); MAGNESIUM LEVEL 1.8 MG/DL (1.8-2.4); PHOSPHORUS LEVEL 2.8 MG/DL (2.5-4.9); POTASSIUM SERUM 4.8 MMOL/L (3.5-5.1); SODIUM LEVEL 137 MMOL/L (136-145)
[2023-07-16] MEDS ORDERED: LIDOCAINE 1% MDV 20ML VIAL As Ordered ONE (12:45)
[2023-07-16] MEDS: OMEPRAZOLE/SODIUM BICARB 20-840MG 10ML ORAL SYRINGE GT SCH (14:40)
[2023-07-16] MEDS: LevoFLOXacin IV 750 MG in IV 1 EA IV SCH (17:55)
[2023-07-16 20:19] LABS: C REACTIVE PROTEIN QUANTITATIV 7.1 MG/DL (<1.0)
[2023-07-16 20:30] LABS: PROCALCITONIN 0.09 ng/ml
[2023-07-16] MEDS: ACETAMINOPHEN 500 MG TAB GT SCH (21:36)
[2023-07-16] MEDS: ARTIFICIAL TEARS DROPS 15ML BTL (VISINE DRY RELIEF) OU SCH (21:37)
[2023-07-17 03:54] VITALS: BP 147/67; TEMP 98.6; O2SAT 95
[2023-07-17 08:00] VITALS: BP 156/70; TEMP 98.4; O2SAT 95
[2023-07-17 16:00] VITALS: BP 157/70; TEMP 98.4; O2SAT 95
[2023-07-17] MEDS: LevoFLOXacin 750 MG TABLET GT SCH (17:34)
[2023-07-17 20:04] VITALS: BP 169/77; TEMP 99.8; O2SAT 95
[2023-07-18 00:04] VITALS: BP 138/76; TEMP 98.1; O2SAT 94
[2023-07-18 03:37] VITALS: BP 146/69; TEMP 98.5; O2SAT 94
[2023-07-18 05:00] VITALS: BP 119/88; TEMP 97.9; O2SAT 96
[2023-07-18 05:00] LABS: BASO % 0.4 % (0.0-1.0); EOS # 0.2 10^3/uL (0.0-0.5); LYMPH # 2.1 10^3/uL (1.5-5.0); LYMPH % 21.1 % (24.0-44.0); MEAN CORPUSCULAR HEMOGLOBIN 31.7 pg (27.0-33.0); MEAN CORPUSCULAR HGB CONC 34.3 g/dl (32.0-36.5); MEAN CORPUSCULAR VOLUME 92.3 fl (80.0-96.0); MONO # 0.8 10^3/uL (0.0-0.8); MONO % 8.5 % (2.0-8.0); NEUTROPHILS # 6.6 10^3/uL (1.5-8.5); NEUTROPHILS % 67.5 % (36.0-66.0); PLATELET COUNT, AUTOMATED 179 10^3/uL (150-450); RED BLOOD COUNT 3.79 10^6/uL (4.30-6.10); WHITE BLOOD COUNT 9.8 10^3/uL (4.0-10.0)
[2023-07-18 05:25] LABS: ALBUMIN 2.7 G/DL (3.2-5.2); ALKALINE PHOSPHATASE 55 U/L (46-116); ALT/SGPT 19 U/L (7.0-40); AST/SGOT 16 U/L (<34); BILIRUBIN,TOTAL 0.8 MG/DL (0.3-1.2); BLOOD UREA NITROGEN 13 MG/DL (9-23); CALCIUM LEVEL 8.4 MG/DL (8.5-10.1); CARBON DIOXIDE LEVEL 28 MMOL/L (20-31); CHLORIDE LEVEL 103 MMOL/L (98-107); GLOMERULAR FILTRATION RATE > 60.0 (>56); GLUCOSE, FASTING 138 MG/DL (60-100); MAGNESIUM LEVEL 1.9 MG/DL (1.8-2.4); POTASSIUM SERUM 4.2 MMOL/L (3.5-5.1); SODIUM LEVEL 134 MMOL/L (136-145); TOTAL PROTEIN 5.2 G/DL (5.7-8.2)
[2023-07-18] MEDS ORDERED: [UNRECOGNIZED DRUG - OTHER] TOP SCH (08:00)
[2023-07-18 14:00] VITALS: BP 159/83; TEMP 97.9; O2SAT 95
[2023-07-18 20:57] VITALS: BP 158/104; TEMP 98.2; O2SAT 97
[2023-07-19 04:37] VITALS: BP 122/75; TEMP 98.1; O2SAT 96
[2023-07-19 08:59] LABS: BASO # 0.1 10^3/uL (0.0-0.2); BASO % 0.6 % (0.0-1.0); EOS # 0.3 10^3/uL (0.0-0.5); EOS % 2.4 % (0.0-3.0); HEMATOCRIT 36.4 % (42.0-52.0); HEMOGLOBIN 12.4 g/dl (13.5-17.5); MEAN CORPUSCULAR HEMOGLOBIN 31.7 pg (27.0-33.0); MEAN CORPUSCULAR HGB CONC 34.1 g/dl (32.0-36.5); MEAN CORPUSCULAR VOLUME 93.1 fl (80.0-96.0); MONO # 1.1 10^3/uL (0.0-0.8); MONO % 10.3 % (2.0-8.0); NEUTROPHILS # 6.9 10^3/uL (1.5-8.5); PLATELET COUNT, AUTOMATED 206 10^3/uL (150-450); RED BLOOD COUNT 3.91 10^6/uL (4.30-6.10); WHITE BLOOD COUNT 10.3 10^3/uL (4.0-10.0)
[2023-07-19 09:26] LABS: BLOOD UREA NITROGEN 14 MG/DL (9-23); CALCIUM LEVEL 8.8 MG/DL (8.5-10.1); CARBON DIOXIDE LEVEL 26 MMOL/L (20-31); CHLORIDE LEVEL 102 MMOL/L (98-107); CREATININE FOR GFR 0.44 MG/DL (0.70-1.30); GLOMERULAR FILTRATION RATE > 60.0 (>56); GLUCOSE, FASTING 94 MG/DL (60-100); MAGNESIUM LEVEL 2.1 MG/DL (1.8-2.4); POTASSIUM SERUM 4.9 MMOL/L (3.5-5.1); SODIUM LEVEL 133 MMOL/L (136-145)
[2023-07-19] MEDS: HEPARIN SOD (PORCINE) 5000UNITS/ML 1ML VIAL/SYRINGE SQ SCH (11:58)
[2023-07-19 14:00] VITALS: BP 165/100; TEMP 97.9; O2SAT 96
[2023-07-19 15:06] VITALS: BP 136/75
[2023-07-19 20:39] VITALS: BP 176/95; TEMP 97.9; O2SAT 94
[2023-07-20 01:21] VITALS: BP 121/84
[2023-07-20 04:43] VITALS: BP 156/97; TEMP 98.1; O2SAT 96
[2023-07-20 06:10] LABS: BASO # 0.1 10^3/uL (0.0-0.2); BASO % 0.6 % (0.0-1.0); EOS # 0.2 10^3/uL (0.0-0.5); EOS % 2.6 % (0.0-3.0); HEMATOCRIT 39.3 % (42.0-52.0); HEMOGLOBIN 13.1 g/dl (13.5-17.5); LYMPH # 2.1 10^3/uL (1.5-5.0); LYMPH % 22.4 % (24.0-44.0); MEAN CORPUSCULAR HEMOGLOBIN 31.3 pg (27.0-33.0); MEAN CORPUSCULAR HGB CONC 33.3 g/dl (32.0-36.5); MONO # 0.7 10^3/uL (0.0-0.8); MONO % 7.2 % (2.0-8.0); NEUTROPHILS # 6.2 10^3/uL (1.5-8.5); NEUTROPHILS % 66.7 % (36.0-66.0); PLATELET COUNT, AUTOMATED 250 10^3/uL (150-450); RED BLOOD COUNT 4.18 10^6/uL (4.30-6.10); WHITE BLOOD COUNT 9.3 10^3/uL (4.0-10.0)
[2023-07-20 06:36] LABS: BLOOD UREA NITROGEN 13 MG/DL (9-23); CARBON DIOXIDE LEVEL 27 MMOL/L (20-31); CHLORIDE LEVEL 102 MMOL/L (98-107); CREATININE FOR GFR 0.48 MG/DL (0.70-1.30); GLOMERULAR FILTRATION RATE > 60.0 (>56); GLUCOSE, FASTING 124 MG/DL (60-100); POTASSIUM SERUM 4.6 MMOL/L (3.5-5.1); SODIUM LEVEL 135 MMOL/L (136-145)
[2023-07-20 14:00] VITALS: BP 115/69; TEMP 97.9; O2SAT 89
[2023-07-20 19:39] VITALS: BP 114/80; TEMP 98.2; O2SAT 97
[2023-07-21 05:20] VITALS: BP 119/99; TEMP 98.1; O2SAT 98
[2023-07-21 06:47] LABS: BASO # 0.1 10^3/uL (0.0-0.2); BASO % 0.5 % (0.0-1.0); EOS # 0.3 10^3/uL (0.0-0.5); EOS % 2.8 % (0.0-3.0); HEMATOCRIT 36.6 % (42.0-52.0); HEMOGLOBIN 12.6 g/dl (13.5-17.5); LYMPH # 1.7 10^3/uL (1.5-5.0); LYMPH % 18.6 % (24.0-44.0); MEAN CORPUSCULAR HEMOGLOBIN 32.1 pg (27.0-33.0); MEAN CORPUSCULAR HGB CONC 34.4 g/dl (32.0-36.5); MEAN CORPUSCULAR VOLUME 93.1 fl (80.0-96.0); MONO # 0.9 10^3/uL (0.0-0.8); MONO % 9.5 % (2.0-8.0); NEUTROPHILS # 6.3 10^3/uL (1.5-8.5); NEUTROPHILS % 67.4 % (36.0-66.0); PLATELET COUNT, AUTOMATED 239 10^3/uL (150-450); RED BLOOD COUNT 3.93 10^6/uL (4.30-6.10); WHITE BLOOD COUNT 9.4 10^3/uL (4.0-10.0)
[2023-07-21 07:11] LABS: BLOOD UREA NITROGEN 14 MG/DL (9-23); CALCIUM LEVEL 8.8 MG/DL (8.5-10.1); CARBON DIOXIDE LEVEL 29 MMOL/L (20-31); CHLORIDE LEVEL 101 MMOL/L (98-107); CREATININE FOR GFR 0.47 MG/DL (0.70-1.30); GLOMERULAR FILTRATION RATE > 60.0 (>56); GLUCOSE, FASTING 124 MG/DL (60-100); POTASSIUM SERUM 4.6 MMOL/L (3.5-5.1); SODIUM LEVEL 134 MMOL/L (136-145)
[2023-07-21 14:00] VITALS: BP 114/73; TEMP 97.7; O2SAT 98
[2023-07-21] MEDS: ACETAMINOPHEN 325MG/10.15ML UDC PEG PRN (18:26)
[2023-07-21 20:30] VITALS: BP 147/76; TEMP 98.1; O2SAT 96
[2023-07-22 04:30] VITALS: BP 155/81; TEMP 98.1; O2SAT 91
[2023-07-22 06:51] LABS: BASO # 0.1 10^3/uL (0.0-0.2); BASO % 0.4 % (0.0-1.0); EOS # 0.3 10^3/uL (0.0-0.5); EOS % 2.3 % (0.0-3.0); HEMATOCRIT 36.9 % (42.0-52.0); HEMOGLOBIN 12.6 g/dl (13.5-17.5); LYMPH # 1.7 10^3/uL (1.5-5.0); LYMPH % 15.1 % (24.0-44.0); MEAN CORPUSCULAR HEMOGLOBIN 31.4 pg (27.0-33.0); MEAN CORPUSCULAR HGB CONC 34.1 g/dl (32.0-36.5); MONO # 1.3 10^3/uL (0.0-0.8); MONO % 11.4 % (2.0-8.0); NEUTROPHILS # 7.8 10^3/uL (1.5-8.5); NEUTROPHILS % 69.4 % (36.0-66.0); PLATELET COUNT, AUTOMATED 273 10^3/uL (150-450); RED BLOOD COUNT 4.01 10^6/uL (4.30-6.10); WHITE BLOOD COUNT 11.3 10^3/uL (4.0-10.0)
[2023-07-22 07:14] LABS: BLOOD UREA NITROGEN 13 MG/DL (9-23); CALCIUM LEVEL 9.4 MG/DL (8.5-10.1); CARBON DIOXIDE LEVEL 28 MMOL/L (20-31); CHLORIDE LEVEL 99 MMOL/L (98-107); CREATININE FOR GFR 0.48 MG/DL (0.70-1.30); GLOMERULAR FILTRATION RATE > 60.0 (>56); GLUCOSE, FASTING 102 MG/DL (60-100); POTASSIUM SERUM 4.5 MMOL/L (3.5-5.1); SODIUM LEVEL 132 MMOL/L (136-145)
[2023-07-22 14:00] VITALS: BP 105/67; TEMP 97.9; O2SAT 98
[2023-07-22 20:20] VITALS: BP 138/84; TEMP 98.4; O2SAT 96
[2023-07-23 05:00] VITALS: BP 141/89; TEMP 98.1; O2SAT 95
[2023-07-23 06:32] LABS: HEMATOCRIT 39.3 % (42.0-52.0); HEMOGLOBIN 13.4 g/dl (13.5-17.5); MEAN CORPUSCULAR HGB CONC 34.1 g/dl (32.0-36.5); MEAN CORPUSCULAR VOLUME 93.8 fl (80.0-96.0); PLATELET COUNT, AUTOMATED 295 10^3/uL (150-450); RED BLOOD COUNT 4.19 10^6/uL (4.30-6.10); WHITE BLOOD COUNT 10.7 10^3/uL (4.0-10.0)
[2023-07-23 06:54] LABS: BLOOD UREA NITROGEN 16 MG/DL (9-23); CALCIUM LEVEL 9.2 MG/DL (8.5-10.1); CARBON DIOXIDE LEVEL 28 MMOL/L (20-31); CHLORIDE LEVEL 99 MMOL/L (98-107); CREATININE FOR GFR 0.52 MG/DL (0.70-1.30); GLOMERULAR FILTRATION RATE > 60.0 (>56); GLUCOSE, FASTING 125 MG/DL (60-100); POTASSIUM SERUM 4.5 MMOL/L (3.5-5.1); SODIUM LEVEL 132 MMOL/L (136-145)
[2023-07-23] MEDS ORDERED: OMEP90SU GT (11:30)
[2023-07-23] MEDS ORDERED: LEVO1TAB40 GT (11:30)
[2023-07-23 14:00] VITALS: BP 131/87; TEMP 97.9; O2SAT 94
[2023-07-23 20:00] VITALS: BP 126/84; TEMP 98.1; O2SAT 94
[2023-07-23 21:50] VITALS: BP 126/84
[2023-07-24 05:30] VITALS: BP 157/91; TEMP 98.2; O2SAT 94
[2023-07-24 12:22] VITALS: BP 138/74; TEMP 98.1; O2SAT 96
[2023-07-29] MEDS ORDERED: FLUCONAZOLE 100 MG TAB GT SCH (09:00)
== END 2023-07-24 12:37 | DRG 555 ==
LOC: M ED 15:55 → EDBD 15:55 → M ED INP 07-16 04:07 → M ICU 07-16 05:19 → M MSPAV 07-18 04:52
PROVIDERS: ADMIT Internal Medicine; ATTEND Family Medicine
DX: M79.81 Nontraumatic hematoma of soft tissue (principal); G82.50 Quadriplegia, unspecified; K21.9 Gastro-esophageal reflux disease without esophagitis; Z79.01 Long term (current) use of anticoagulants; J45.909 Unspecified asthma, uncomplicated; I10 Essential (primary) hypertension; Z93.1 Gastrostomy status; I95.9 Hypotension, unspecified; Z87.820 Personal history of traumatic brain injury; G40.909 Epilepsy, unspecified, not intractable, without status epilepticus; Z86.718 Personal history of other venous thrombosis and embolism; Z74.01 Bed confinement status; G47.33 Obstructive sleep apnea (adult) (pediatric); Z79.899 Other long term (current) drug therapy; Z88.0 Allergy status to penicillin; Z88.8 Allergy status to other drugs, medicaments and biological substances; E87.5 Hyperkalemia

== ENCOUNTER → 2023-09-05 | Outpatient (REF) | payer MEDICARE ==
[~2023-09-05] MED LIST changes: +ACET-897 GT; +CHLO0.124 PO; +CVS2POW3 EXT; +DIFL200T GT; +EYEL1MED TOP; +GNPSOL OU; +LEVO1TAB40 GT; +METO25TA4 GT; +MILKSUS3 GT; +NYST1POW9 TOP; +OMEP-173 GT; +OMEP90SU GT; +OSMOLIQ GT; +SENN8.6T28 GT; +VASEGEL6 TOP; +XARE10TA PO; +[UNRECOGNIZED DRUG - OTHER] EXT
[2023-09-05 10:48] LABS: HEMATOCRIT 49.4 % (42.0-52.0); HEMOGLOBIN 16.9 g/dl (13.5-17.5); MEAN CORPUSCULAR HEMOGLOBIN 31.5 pg (27.0-33.0); MEAN CORPUSCULAR HGB CONC 34.2 g/dl (32.0-36.5); PLATELET COUNT, AUTOMATED 258 10^3/uL (150-450); RED BLOOD COUNT 5.37 10^6/uL (4.30-6.10); WHITE BLOOD COUNT 7.2 10^3/uL (4.0-10.0)
[2023-09-05 11:09] LABS: ALBUMIN 3.9 G/DL (3.2-5.2); ALKALINE PHOSPHATASE 76 U/L (46-116); ALT/SGPT 24 U/L (7.0-40); AST/SGOT 16 U/L (<34); BILIRUBIN,TOTAL 0.6 MG/DL (0.3-1.2); BLOOD UREA NITROGEN 14 MG/DL (9-23); CALCIUM LEVEL 9.4 MG/DL (8.5-10.1); CARBON DIOXIDE LEVEL 26 MMOL/L (20-31); CHLORIDE LEVEL 100 MMOL/L (98-107); CREATININE FOR GFR 0.48 MG/DL (0.70-1.30); GLOMERULAR FILTRATION RATE > 60.0 (>56); GLUCOSE, FASTING 87 MG/DL (60-100); POTASSIUM SERUM 4.3 MMOL/L (3.5-5.1); SODIUM LEVEL 134 MMOL/L (136-145); TOTAL PROTEIN 6.7 G/DL (5.7-8.2)
== END ==
PROVIDERS: ATTEND Internal Medicine
DX: G40.909 Epilepsy, unspecified, not intractable, without status epilepticus (principal)

== ENCOUNTER → 2023-11-08 | Outpatient (REF) | payer MEDICARE | LOC: M LAB 16:13 | PROVIDERS: ATTEND Internal Medicine | DX: Z12.11 Encounter for screening for malignant neoplasm of colon (principal) ==

== ENCOUNTER → 2024-03-08 | Outpatient (REF) | payer MEDICARE ==
[~2024-03-08] MED LIST changes: +NYST1POW3 TOP; -NYST1POW9 TOP
[2024-03-08 10:32] LABS: HEMATOCRIT 48.1 % (42.0-52.0); HEMOGLOBIN 16.2 g/dl (13.5-17.5); MEAN CORPUSCULAR HEMOGLOBIN 31.7 pg (27.0-33.0); MEAN CORPUSCULAR HGB CONC 33.7 g/dl (32.0-36.5); MEAN CORPUSCULAR VOLUME 94.1 fl (80.0-96.0); PLATELET COUNT, AUTOMATED 186 10^3/uL (150-450); RED BLOOD COUNT 5.11 10^6/uL (4.30-6.10); WHITE BLOOD COUNT 7.8 10^3/uL (4.0-10.0)
[2024-03-08 10:49] LABS: ALBUMIN 3.3 G/DL (3.2-5.2); ALKALINE PHOSPHATASE 65 U/L (40-129); ALT/SGPT 30 U/L (7.0-40); AST/SGOT 22 U/L (<34); BILIRUBIN,TOTAL 0.5 MG/DL (0.3-1.2); BLOOD UREA NITROGEN 20 MG/DL (9-23); CALCIUM LEVEL 8.7 MG/DL (8.5-10.1); CARBON DIOXIDE LEVEL 28 MMOL/L (20-31); CHLORIDE LEVEL 104 MMOL/L (98-107); CREATININE FOR GFR 0.51 MG/DL (0.70-1.30); GLOMERULAR FILTRATION RATE > 60.0 (>56); GLUCOSE, FASTING 79 MG/DL (60-100); POTASSIUM SERUM 4.6 MMOL/L (3.5-5.1); SODIUM LEVEL 140 MMOL/L (136-145); TOTAL PROTEIN 6.1 G/DL (5.7-8.2)
== END ==
PROVIDERS: ATTEND Physician Assistant
DX: G40.909 Epilepsy, unspecified, not intractable, without status epilepticus (principal)

== ENCOUNTER → 2024-03-24 | Outpatient (REF) | payer MEDICARE | PROVIDERS: ATTEND Internal Medicine | DX: G40.909 Epilepsy, unspecified, not intractable, without status epilepticus (principal); Z79.899 Other long term (current) drug therapy ==

== ENCOUNTER → 2024-05-21 | Outpatient (REF) | payer MEDICARE ==
[2024-05-21 19:23] LABS: HEMATOCRIT 46.5 % (42.0-52.0); HEMOGLOBIN 15.9 g/dl (13.5-17.5); MEAN CORPUSCULAR HEMOGLOBIN 32.2 pg (27.0-33.0); MEAN CORPUSCULAR HGB CONC 34.2 g/dl (32.0-36.5); MEAN CORPUSCULAR VOLUME 94.1 fl (80.0-96.0); PLATELET COUNT, AUTOMATED 195 10^3/uL (150-450); RED BLOOD COUNT 4.94 10^6/uL (4.30-6.10); WHITE BLOOD COUNT 10.9 10^3/uL (4.0-10.0)
[2024-05-21 19:45] LABS: BLOOD UREA NITROGEN 17 MG/DL (9-23); CALCIUM LEVEL 8.2 MG/DL (8.5-10.1); CARBON DIOXIDE LEVEL 26 MMOL/L (20-31); CHLORIDE LEVEL 100 MMOL/L (98-107); CREATININE FOR GFR 0.44 MG/DL (0.70-1.30); GLOMERULAR FILTRATION RATE > 60.0 (>56); GLUCOSE, FASTING 103 MG/DL (60-100); SODIUM LEVEL 137 MMOL/L (136-145)
== END ==
PROVIDERS: ATTEND Nurse Practitioner Family
DX: R05.9 Cough, unspecified (principal); Z79.899 Other long term (current) drug therapy; Z98.1 Arthrodesis status

== ENCOUNTER → 2024-05-21 | Outpatient (REF) | payer MEDICARE | PROVIDERS: ATTEND Internal Medicine | DX: R05.9 Cough, unspecified (principal); Z98.1 Arthrodesis status ==

== ENCOUNTER → 2024-09-08 | Outpatient (REF) | payer MEDICARE ==
[~2024-09-08] MED LIST changes: -SUCR1ORA2 PEG; +SUCR1ORA20 PEG
[2024-09-08 10:32] LABS: PLATELET COUNT, AUTOMATED 191 10^3/uL (150-450)
[2024-09-08 11:06] LABS: ALT/SGPT 21 U/L (7.0-40); AST/SGOT 21 U/L (<34); CALCIUM LEVEL 9.0 MG/DL (8.5-10.1); CARBON DIOXIDE LEVEL 28 MMOL/L (20-31); CHLORIDE LEVEL 99 MMOL/L (98-107); CREATININE FOR GFR 0.55 MG/DL (0.70-1.30); GLOMERULAR FILTRATION RATE > 90.0 (>56); POTASSIUM SERUM 4.4 MMOL/L (3.5-5.1); SODIUM LEVEL 139 MMOL/L (136-145)
== END ==
PROVIDERS: ATTEND Nurse Practitioner Family
DX: R56.9 Unspecified convulsions (principal)

== ENCOUNTER → 2024-12-17 | Outpatient (REF) | payer MEDICARE ==
[2024-12-17 11:05] LABS: ESTIMATED AVERAGE GLUCOSE 100.0 MG/DL (60-110)
[2024-12-17 11:15] LABS: CHOLESTEROL LEVEL 129.0 MG/DL (<200); CHOLESTEROL RISK RATIO 4.18 (<5); LDL CHOLESTEROL 52.2 MG/DL (<100); NON-HDL-C 98.2 MG/DL; TRIGLYCERIDES LEVEL 230.0 MG/DL (<150)
== END ==
PROVIDERS: ATTEND Nurse Practitioner Family
DX: I10 Essential (primary) hypertension (principal); Z79.899 Other long term (current) drug therapy